=== PATIENT | female | born 1945 | race Caucasian/White ===

== ENCOUNTER 2025-03-14 10:23 | Outpatient (OUT) | payer OTHER, MEDICAID, SELFPAY ==
--- OUTSIDE RECORDS SUMMARY | 2025-03-14 10:26 | XMS_ITS | Clinical Summary ---
Author Organization [employer] tem Address [facility] [id number] [address] [place] [address] Care Team Providers Care Electrical Line Splicer Name Role Phone Kimberly Santillan MD Primary Care Provider [phone] Allergies Active Allergy Reactions Criticality Noted Date Comments Sulfamethoxazole-Trimethoprim 2020 Fatigued, headache Hydralazine Rash Low 10/05/2018 Latex, Natural Rubber Rash Low 08/20/2016 Penicillins Hives 08/20/2016 Pneumococcal 7-More Conj Vacc 019 Sulfa (Sulfonamide Antibiotics) 10/28 Medications aspirin 81 mg Take 1 tablet (81 mg total) by mouth in the morning. Active atorvastatin (LIPITOR) 40 mg tablet Take 2 tablets (80 mg total) by mouth nightly. Active therapeutic multivitamin (THERAGRAN) tablet Take 1 tablet by mouth in the morning. Active omeprazole (PriLOSEC) 20 mg capsule Take 1 capsule (20 mg total) by mouth in the morning. Active DULoxetine (CYMBALTA) 60 mg capsule Take 1 capsule (60 mg total) by mouth in the morning. Active cholecalciferol, vitamin D3, 2,000 units capsule Take 1 capsule (2,000 Units total) by mouth in the morning. Active b complex vitamins capsule Take 1 capsule by mouth in the morning. Active clopidogrel (PLAVIX) 75 mg tablet Take 1 tablet (75 mg total) by mouth in the morning. Active polyethylene glycol (GLYCOLAX) 17 gram packet Take 17 g by mouth in the morning. Active calcium carbonate (OS-DOM) 600 mg (1,500 mg) tablet Take 1 tablet (600 mg total) by mouth daily with breakfast. Active levothyroxine (SYNTHROID, LEVOTHROID) 25 MCG tablet Take 2 tablets (50 mcg total) by mouth in the morning. 10/18/19 Active metoprolol succinate XL (TOPROL-XL) 50 mg 24 hr tablet Take 1 tablet (50 mg total) by mouth daily. 30 tablet 11 04/01/20 20 Active glipiZIDE (GLUCOTROL) 5 mg tablet Take 1 tablet (5 mg total) by mouth in the morning. 05/08/20 Active insulin aspart U-100 (NovoLOG) 100 unit/mL injection Inject under the skin 4 (four) times a day before meals and nightly. SS 150-199=1 UNIT 200-249=2 UNITS 250-299=3 UNITS 300-349=4 UNITS 350-399=5UNITS 400-401=6UNITS, IF BS IS OVER 400 CALL DOCTOR Active pantoprazole (PROTONIX) 20 mg EC tablet Take 2 tablets (40 mg total) by mouth every morning before breakfast. Active docusate sodium (COLACE) 100 mg capsule Take 1 capsule (100 mg total) by mouth in the morning. Active magnesium oxide (MAG-OX) 400 mg tablet Take 1 tablet (400 mg total) by mouth 2 (two) times a day. 60 tablet 2 09/15/19 21 Active Additional Information Patient taking differently:400 mg oralDaily, Morning, Reported on 02/21/2025 semaglutide 14 mg tablet Take 14 mg by mouth in the morning. Active trospium (SANCTURA XR) 60 mg capsule,extended release 24hr Take 1 capsule (60 mg total) by mouth every morning before breakfast. 30 capsule 11 01/30/20 22 Active Additional Information Patient not taking.Reported on 02/21/2025 cetirizine (ZyrTEC) 10 mg tablet Take 1 tablet (10 mg total) by mouth in the morning. Active sennosides-docus ate sodium (SENOKOT-S) 8.6-50 mg Take 2 tablets by mouth daily as needed for constipation. Active acetaminophen (TYLENOL ARTHRITIS) 650 mg 8 hr tablet Take 2 tablets (1,300 mg total) by mouth 2 (two) times a day as needed for pain. Active minocycline (DYNACIN) 50 MG tablet Take 1 tablet (50 mg total) by mouth in the morning and 1 tablet (50 mg total) before bedtime. Active multivit-min/FA/ lycopen/lutein (CERTAVITE SENIOR ORAL) Take by mouth in the morning. Active diclofenac sodium (VOLTAREN) 1 % gel Apply 1 g topically in the morning and at bedtime. Active fluticasone propionate (FLONASE) 50 mcg/actuation nasal spray Administer 1 spray into each nostril daily as needed for rhinitis. Active mirabegron (MYRBETRIQ) 50 mg tablet extended release 24 hr Take 1 tablet (50 mg total) by mouth nightly. Active omega-3 acid ethyl esters (LOVAZA) 1 gram capsule Take 1 capsule (1 g total) by mouth in the morning. Active amLODIPine (NORVASC) 10 mg tablet Take 1 tablet (10 mg total) by mouth in the morning. 30 tablet 2 01/08/20 Active furosemide (LASIX) 40 mg tablet Take 1 tablet (40 mg total) by mouth daily. 30 tablet 2 01/08/20 Active Additional Information Patient taking differently: 20 mgoral Daily, Reported on 02/21/2025 potassium chloride (KLOR-CON M 20) 20 MEQ CR tablet Take 1 tablet (20 mEq total) by mouth in the morning. 30 tablet 2 01/07/20 23 Active albuterol (PROVENTIL HFA;VENTOLIN HFA) 90 mcg/actuation inhaler Inhale 2 puffs every 4 (four) hours as needed. 06/14/19 25 Active albuterol-budeso nide (AIRSUPRA) 90-80 mcg/actuation HFA aerosol inhaler Inhale 2 puffs every 6 (six) hours as needed. 06/27/19 25 Active azelastine (ASTELIN) 137 mcg (0.1 %) nasal spray Administer 2 sprays into each nostril in the morning and 2 sprays before bedtime. 11/25/19 25 Active calcium citrate (CALCITRATE) 200 mg (950 mg) tablet Take 950 mg by mouth in the morning. Active FARXIGA 10 mg tablet Take 1 tablet (10 mg total) by mouth in the morning. 11/29/19 25 Active ipratropium (ATROVENT) 42 mcg (0.06 %) nasal spray Administer 2 sprays into each nostril in the morning and 2 sprays at noon and 2 sprays in the evening and 2 sprays before bedtime. 06/04/19 25 Active lisinopriL (PRINIVIL,ZESTRI L) 2.5 mg tablet Take 1 tablet (2.5 mg total) by mouth in the morning. Active ULTRA-FINE PEN NEEDLE 31 gauge x 3/16 needle USE 1 IN THE MORNING THEN 1 AT NOON THEN 1 IN THE EVENING AND 1 BEFORE BEDTIME INJECT BEFORE MEALS 01/16/20 Active propylene glycoL (SYSTANE BALANCE) 0.6 % drops Instill 1 drop to eye in the morning and 1 drop at noon and 1 drop in the evening and 1 drop before bedtime. Active insulin glargine,hum.rec .anlog (BASAGLAR KWIKPEN U-100 INSULIN) 100 unit/mL (3 mL) insulin pen Inject 10 Units under the skin nightly. Active traMADoL (ULTRAM) 50 mg tablet Take 1 tablet (50 mg total) by mouth every 8 (eight) hours as needed for pain. Discontinu ed(Alterna te therapy) traMADoL (ULTRAM) 50 mg tabletIndication s:Lumbar pain Take 1 tablet (50 mg total) by mouth every 8 (eight) hours as needed for pain for up to 2 days. 6 tablet 02/15/20 025 CEPHalexin (KEFLEX) 500 mg capsule Take 1 capsule (500 mg total) by mouth 3 (three) times a day for 7 days. 21 capsule 02/15/20 25 025 guaiFENesin (MUCINEX) 600 mg tablet extended release 12hr Take 2 tablets (1,200 mg total) by mouth in the morning and 2 tablets (1,200 mg total) before bedtime. 02/28/20 24 025 HYDROcodone-acet aminophen (NORCO) 5-325 mg per tablet Take 1 tablet by mouth every 6 (six) hours as needed. 02/17/20 025 Active Problems Problem Noted Date Diagnosed Date Acute respiratory failure with hypoxia and hyper capnia 01/03/2023 Acute on chronic diastolic congestive heart fail ure 01/03/2023 Hypomagnesemia 09/14/2020 Hypokalemia due to excessive gastrointestinal loss of potassium 09/13/2020 Viral gastroenteritis 09/11/2020 Elevated troponin 04/01/2020 Orthostatic hypotension 04/01/2020 Near syncope 04/01/2020 Abnormal EKG 04/01/2020 Hypothyroidism 09/18/2019 Gastroesophageal reflux disease 04/19/2019 OAB (overactive bladder) 11/14/2018 Overview (03/02/2022): 11/14/18: Overactive bladder with normal exam. Plan urine for culture. Increase Myrbetriq to 50 mg 12/19/18: Markedly improved with myrbetriq 50 mg. Plan to add oxybutynin xr 10 mg daily 01/16/19: Cured with combination of Myrbetriq 50 mg oxybutynin extended release 10 mg. 02/06/20: Was doing well with regimen until recently. Despite the negative culture, she actually feels she is back to baseline with Macrobid. 03/11/20: Recent recurrent overactive bladder. Urine specimen unable to be obtained in clinic. She has been sent home with a collection cup. Will plan to trial Macrobid after urine dropped off. Additionally was suggested that she might benefit from stopping the Ditropan from her neurologist. We can do this but she will likely start to leak more. Also discucssed botox but given the risk of retention she was not interested. Will defer to primary care to change hytrin. 07/23/20: Recent worsening of symptoms. We will clarify with her nursing staff to make sure she is taking both the Myrbetriq and oxybutynin as prescribed. If she has persistent issues, we could consider increasing her oxybutynin to 15 mg. It sounds like neuro was fine with her staying on it as her dizziness resolved after decreasing the dose of her Hytrin. I asked her to call if she suspects a Urinary tract infection as we will check a culture. 01/20/21: Daytime overactive bladder controlled with Myrbetriq 50 mg. Having nocturnal frequency and urge incontinence. Plan to have her tested for sleep apnea. 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 Persistent symptoms including daytime urgency and urge incontinence. Med list shows she is no longer on Myrbetriq. Options reviewed. She is interested in trying Gemtesa 01/06/22: No improvement with Gemtesa. Daytime frequency and nocturia equally problematic at this point. Discussed Botox, sacral nerve stimulation, PFPT or another medication trial. She is interested in a trial of Myrbetriq and Sanctura 03/02/22: Currently using myrbetriq 50 mg. Options of botox, interstim and eCOIN discussed. For now she would like to hold the myrbetriq to see if this is helping at all. If things worsen she would be interested in considering eCOIN Assessment & Plan (01/06/2022 2:55 PM EDT): She had discontinued anticholinergics in the past but it sounds like this was later clear through neurology. We discussed the concerns for memory issues with anticholinergic use. She understands and would like to proceed. We will see her back in 3 months or sooner if any problems Assessment & Plan (12/09/2021 12:37 PM EDT): She understands that sometimes we have issues getting the medication covered by insurance. We did discuss Botox as an option as well Assessment & Plan (02/06/2020 2:38 PM EDT): UA today does show some leukocytes. To be safe, we will repeat culture. I asked her to call if symptoms return as we will repeat UA and C&S before determining further management. If her symptoms return, we could consider pursuing urodynamics testing before discussing further treatment options. If she continues to do well, we will see her back in 1 year. 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 Bilateral carotid artery stenosis 08/08/2017 Blurred vision 06/08/2017 Raynaud's disease 06/02/2017 TIA (transient ischemic attack) 01/24/2017 Spondylosis without myelopat hy or radiculopathy, lumbosacral region 08/20/2016 Sacrococcygeal disorders, not elsewhere classifi ed 08/20/2016 Spondylosis without myelopat hy or radiculopathy, lumbar region 08/20/2016 Small vessel disease 08/20/2016 Other intervertebral disc displacement, lumbar r egion 08/20/2016 Pain in right hip 08/20/2016 Stage 3 chronic kidney disease 01/07/2016 Hyperlipidemia 11/12/2015 Essential hypertension 03/19/2015 Diabetes mellitus, type II 11/27/2009 Overview (01/03/2023): Diabetes mellitus type II Resolved Problems Problem Noted Date Diagnosed Date Resolved Date NSTEMI (non-ST elevated myoc ardial infarction) 03/13/2020 04/01/2020 Encounters Date Type Department Care Team Description 02/21/2025 2:00 PM EDT Office Visit [facility] [address] [place] [phone] Tre Jiang MD Stage 3b chronic kidney disease (CMS-HCC) (Primary Dx) 02/21/2025 Travel 02/19/2025 Results Follow-Up [facility] [address] [place] [phone] Ban Canas RN Urine Culture Urine, Clean Catch Midstream 02/17/2025 8:31 AM EDT - 02/17/2025 5:09 PM EDT Emergency [facility] [address] [place] [phone] Wilfredo Canas MD Hyperkalemia (Primary Dx); Urinary tract infection without hematuria, site unspecified; Acute renal failure superimposed on chronic kidney disease, unspecified acute renal failure type, unspecified CKD stage Discharge Disposition: Home 02/17/2025 Travel 02/15/2025 Telephone [facility] [place] [address] [place] [address] Teresita Yañez CMA 02/14/2025 8:16 AM EDT - 02/14/2025 9:59 AM EDT Emergency [place] [address] [place] [phone] Wilfredo Canas MD Lumbar pain (Primary Dx); Urinary tract infection without hematuria, site unspecified; Hypertension, unspecified type Discharge Disposition: Home 02/14/2025 Travel 01/29/2025 Travel 01/25/2025 Telephone [facility] [address] [place] [address] Pili Montoya CMA Appointment (New Patient ) 01/07/2025 Travel 01/02/2025 Orders Only [facility] [place] [address] [place] [address] Say Harkins MD Stage 3b chronic kidney disease (CMS-HCC) (Primary Dx) 01/01/2025 Telephone [facility] [address] [place] [address] External, Scanning Provider 12/31/2024 Telephone [facility] [address] [place] [phone] External, Scanning Provider from Last 3 Months Immunizations No known immunizations Family History Medical History Relation Name Comments Cancer Father Heart disease Mother Relation Name Status Comments Father Mother Social History Tobacco Use Types Packs/Day Years Used Date Smoking Tobacco: Former Cigarettes 1.5 35 1 960 - 1994 Smokeless Tobacco: Never Tobacco Cessation:Counseling Given: Not Answered Alcohol Use Standard Drinks/Week Comments No 0 (1 standard drink = 0.6 oz pur e alcohol) Housing Instability Answer Date Recorde d Are you worried or concerned that in the next two months you may not have stable housing that you own, rent or stay in as a part of a household? No 01/04/2023 Childcare Answer Date Recorded Childcare Unknown 11/06/2018 Employment Answer Date Recorded Employment Unknown 11/06/2018 Hunger Screening Answer Date Recorded Within the past 12 months we worried whether our food would run out before we got money to buy more. Never True 02/17/2025 Within the past 12 months th e food we bought just didn't last and we didn't have money to get more. Never True 02/17/2025 Purpose - Life Answer Date Recorded Purpose and direction in life Unknown Comments No Sex and Gender Information Value Date Recorded Sex Assigned at Not on file Legal Sex Female 11:23 AM EDT Gender Identity Not on file Sexual Orientation Not on file Last Filed Vital Signs Vital Sign Reading Time Taken Comments Blood Pressure 176/74 02/21/2025 1:45 PM EDT Pulse 80 02/21/2025 1:45 PM EDT Temperature 36.8 C (98.3 F) 02/17/2025 8:32 AM EDT Respiratory Rate 16 02/17/2025 8:32 AM EDT Oxygen Saturation 95% 02/17/2025 4:45 PM EDT Inhaled Oxygen Concentration - - Weight 65.8 kg (145 lb) 02/21/2025 1:45 PM EDT Height 157.5 cm (5' 2 ) 02/21/2025 1:45 PM EDT Body Mass Index 26.52 02/21/2025 1:45 PM EDT Plan of Treatment Upcoming Encounters Date Type Department Care Team (Late st Contact Info) Description 06/13/2025 4:00 PM EST Office Visit [facility] [address] [place] [phone] Tre Jiang MD [address] [place] [address] Health Maintenance Due Date Last Done Comments Depression Screening 1957 DTaP,Tdap and Td Vaccines (1 - Tdap) 08/08/1962 Zoster (Shingles) Vaccine (1 of 2) 08/08/1993 Fall Risk Screening 08/08/2008 COVID-19 Vaccine (5 - 2024-2 6 season) 2025 10/19/2021, 03/16/2021, 07/24/2020, Additional history exists Influenza Vaccine 01/28/2025 03/11/2021, , 02/16/2019, Additional history exists Tobacco Screening 02/21/2026 02/21/2025 Goals Goal Patient Goal Type Associated Problems Recent Progress Patient-Stated? Author Return to Asst Anat General Yes Arina Monahan LSW Note: Evaluation of progress towards goal: Safe dc transition from hospital with return to [place] with PP services. Medical Devices Implanted Type Area Knitter Machine Device Identifier Shelf Expiration Date Model / Serial / Lot Lens Iol Ultrasert 22.0d - [id number] - [id number] Implanted:Qty: 1 on 06/04/2021 by Donna Kwok MD at [facility] Lens Left: Eye [employer] 02/03/2024 AU00T0 22.0 / [id number] / Lens Iol Ultrasert 22.5d - [id number] - [id number] Implanted:Qty: 1 on 07/09/2021 by Donna Kwok MD at [facility] Lens Right: Eye [employer] 10/19/2023 AU00T0 22.5 / [id number] / NA Procedures Procedure Name Priority Date/Time Associated Diagnosis Comments VITAMIN D 25 HYDROXY Routine 02/19/2025 10:16 AM EDT Stage 3b chronic kidney disease ([facility]) URINALYSIS Routine 02/19/2025 10:16 AM EDT Stage 3b chronic kidney disease ([facility]) PROTEIN CREAT RATIO Routine 02/19/2025 1 0:16 AM EDT Stage 3b chronic kidney disease ([facility]) PHOSPHORUS Routine 02/19/2025 10:16 AM EDT Stage 3b chronic kidney disease ([facility]) MAGNESIUM Routine 02/19/2025 10:16 AM EDT Stage 3b chronic kidney disease ([facility]) PARATHYROID HORMOME, INTACT Routine 02/19/2025 10:16 AM EDT Stage 3b chronic kidney disease ([facility]) BASIC METABOLIC PANEL Routine 02/19/2025 10:16 AM EDT Stage 3b chronic kidney disease ([facility]) CBC (NO DIFF) Routine 02/19/2025 10:16 AM EDT Stage 3b chronic kidney disease ([facility]) BASIC METABOLIC PANEL STAT 02/17/2025 3:17 PM EDT POCT NURSING URINE MACROSCOPIC UA Routine 02/17/2025 10:13 AM EDT ER EXTRA URINE MARBLE STAT 02/17/2025 10:11 AM EDT ER EXTRA URINE CULTURE STAT 10:11 AM EDT ER EXTRA URINE STAT 02/17/2025 10:11 AM EDT URINE CULTURE STAT 02/17/2025 10:11 AM EDT COMPREHENSIVE METABOLIC PANEL STAT 02/17/2025 9:23 AM EDT CBC WITH AUTO DIFFERENTIAL STAT 02/17/2025 9:[address] ABDOMEN AND PELVIS WO CONT STAT 02/17/2025 8:59 AM EDT POCT NURSING URINE MACROSCOPIC UA Routine 02/14/2025 9:[address] ABDOMEN AND PELVIS WO CONT STAT 02/14/2025 8:40 AM EDT from Last 3 Months Results * (ABNORMAL) Protein creat ratio (02/19/2025 10:16 AM EDT) URINE PROTEIN, RANDOM (MG/L) 1,150(H) <120 mg/L 02/19/2025 6:50 PM EDT [facility] URINE CREATININE,RDM 43.56 mg/dL 02/19/2025 6:50 PM EDT [facility] U/PRO/CHECKOUT OPERATOR RATIO CALC 2.64(H) <=0.20 02/19/2025 6:50 PM EDT [facility] Urine (Other) Collection / Unknown 02/19/2025 10:16 AM EDT 02/19/2025 10:17 AM EDT [facility] - 02/19/2025 6:50 PM EDT Nephrotic Syndrome is associated with ratios >3.5 us Say Harkins MD URINE ORDERABLES Final Result Performing Organization Address City/[facility]/ZIP Co de Phone Number [facility] [address] [place] [address], [place] [phone] * Parathyroid Hormone, intact (02/19/2025 10:16 AM EDT) PTH INTACT 49 12 - 88 pg/mL 02/19/2025 2:03 PM EDT [facility] Blood Venous blood / Unknown Venipuncture / Unknown 02/19/2025 10:16 AM EDT 02/19/2025 10:17 AM EDT us Say Harkins MD LAB BLOOD ORDERABLES Final Resul t Performing Organization Address City/[facility]/ZIP Co de Phone Number [facility] [address] [place] [address], [place] [phone] * (ABNORMAL) Vitamin D 25 hydroxy (02/19/2025 10:16 AM EDT) VITAMIN D 25 HYD TOT 27.9(L) 30.0 - 100.0 ng/mL 02/19/2025 2:10 PM EDT [facility] Blood Venous blood / Unknown Venipuncture / Unknown 02/19/2025 10:16 AM EDT 02/19/2025 10:17 AM EDT Narrative [facility] - 02/19/2025 2:10 PM EDT Vitamin D status 25 [place] Vitamin D Deficiency <20 ng/mL Insufficiency 20-29 ng/mL Sufficiency 30-100 ng/mL Toxicity >100 ng/mL NOTE: A pediatric reference range has not been established by the reporting developer of this kit. The [employer] recommends a Vitamin D level of = or >20ng/mL in infants and children. us Say Harkins MD LAB BLOOD ORDERABLES Final Resul t [facility] [address] [place] [address], * (ABNORMAL) Urinalysis (02/19/2025 10:16 AM EDT) COLOR Yellow Yellow 02/19/2025 6:18 PM EDT [facility] TURBIDITY Clear Clear 02/19/2025 6:18 PM EDT [facility] SPECIFIC GRAVITY 1.008 1.003 - 1.035 02/19/2025 6:18 PM EDT [facility] NITRITE Negative Negative 02/19/2025 6:18 PM EDT [facility] PH,URINE 5.5 5.0 - 8.5 02/19/2025 6:18 PM EDT [facility] LEUKOCYTE ESTERASE Negative Negative 02/19/2025 6:18 PM EDT [facility] PROTEIN 70 mg/dL(A) Negative 02/19/2025 6:18 PM EDT [facility] KETONES (URINE) Negative Negative 6:18 PM EDT [facility] UROBILINOGEN <1.1 eu/dL <1.1 eu/dL 02/19/2025 6:18 PM EDT [facility] BILIRUBIN (URINE) Negative Negative 02/19/2025 6:18 PM EDT [facility] BLOOD/HGB Negative Negative 02/19/2025 6:18 PM EDT [facility] MUCOUS Present(A) None 02/19/2025 6:18 PM EDT [facility] R.B.CELLS 1 0 - 5 02/19/2025 6:18 PM EDT [facility] SQUAMOUS EPITHELIUM <1 0 - 5 02/19/2025 6:18 PM EDT [facility] W.B.CELLS 2 0 - 5 02/19/2025 6:18 PM EDT [facility] GLUCOSE (URINE) 1000 mg/dL(A) Negative 02/19/2025 6:18 PM EDT [facility] Urine (Other) Collection / Unknown 02/19/2025 10:16 AM EDT 02/19/2025 10:17 AM EDT Narrative [facility] - 02/19/2025 6:18 PM EDT Urine received without preservative. Delays in transport may affect results. Interpret with caution. A clinical correlation is recommended. us Say Harkins MD URINE ORDERABLES Final Result [facility] [address] [place] [address], [place] [phone] * (ABNORMAL) CBC without diff (02/19/2025 10:16 AM EDT) WBC 7.9 4 - 11 x10E9/L 02/19/2025 2:53 PM EDT [facility] RBC Count 3.76(L) 3.8 - 5.2 X10E12/L 02/19/2025 2:53 PM EDT [facility] Hemoglobin 12.2 11.7 - 15.5 g/dL 02/19/2025 2:53 PM EDT [facility] Hematocrit 36.2 35 - 47 % 02/19/2025 2:53 PM EDT [facility] MCV 96 80 - 100 fL 02/19/2025 2:53 PM EDT [facility] MCH 32.4 27 - 34 pg 02/19/2025 2:53 PM EDT [facility] MCHC 33.7 32 - 36 g/dL 02/19/2025 2:53 PM EDT [facility] RDW 14.4 11.5 - 15 % 02/19/2025 2:53 PM EDT [facility] Platelet Count 227 150 - 450 X10E9/L 02/19/2025 2:53 PM EDT [facility] MPV 10.0 7 - 12 fL 02/19/2025 2:53 PM EDT [facility] Blood Venous blood / Unknown Venipuncture / Unknown 02/19/2025 10:16 AM EDT 02/19/2025 10:17 AM EDT us Say Harkins MD LAB BLOOD ORDERABLES Final Resul t [facility] [address] [place] [address], [place] [phone] * Phosphorus (02/19/2025 10:16 AM EDT) PHOSPHORUS 4.0 2.4 - 4.9 mg/dL 02/19/2025 1:47 PM EDT [facility] Blood Venous blood / Unknown Venipuncture / Unknown 02/19/2025 10:16 AM EDT 02/19/2025 10:17 AM EDT us Say Harkins MD LAB BLOOD ORDERABLES Final Resul t Performing Organization Address City/[facility]/ZIP Co de Phone Number [facility] [address] [place] [address], [place] [phone] * Magnesium (02/19/2025 10:16 AM EDT) MAGNESIUM 2.4 1.8 - 2.6 mg/dL 02/19/2025 1:47 PM EDT [facility] Blood Venous blood / Unknown Venipuncture / Unknown 02/19/2025 10:16 AM EDT 02/19/2025 10:17 AM EDT us Say Harkins MD LAB BLOOD ORDERABLES Final Resul t [facility] [address] [place] [address], [place] [phone] * (ABNORMAL) Basic Metabolic Panel (02/19/2025 10:16 AM EDT) Only the most recent of2 resultswithin the time period is included. SODIUM 135 134 - 146 mmol/L 02/19/2025 1:47 PM EDT [facility] POTASSIUM 4.6 3.5 - 5.0 mmol/L 02/19/2025 1:47 PM EDT [facility] CHLORIDE 102 98 - 109 mmol/L 02/19/2025 1:47 PM EDT [facility] CARBON DIOXIDE 27 22 - 32 mmol/L 02/19/2025 1:47 PM EDT [facility] ANION GAP 6 5 - 15 mmol/L 02/19/2025 1:47 PM EDT [facility] BLOOD UREA NITROGEN 46(H) 5 - 27 mg/dL 02/19/2025 1:47 PM EDT [facility] CREATININE 2.24(H) 0.40 - 1.00 mg/dL 02/19/2025 1:47 PM EDT [facility] Comment:METHOD TRACEABLE TO IDMS STANDARD GLUCOSE 124(H) 65 - 99 mg/dL 02/19/2025 1:47 PM EDT [facility] CALCIUM 9.3 8.5 - 10.5 mg/dL 02/19/2025 1:47 PM EDT [facility] EGFR Non-Race Dependent 22(L) >=60 ml/min/1.7 3sq.m 02/19/2025 1:47 PM EDT [facility] Comment: Reported eGFR is based on the CKD-EPI 2020 equation that does not use a race coefficient. Blood Venous blood / Unknown Venipuncture / Unknown 02/19/2025 10:16 AM EDT 02/19/2025 10:17 AM EDT us Say Harkins MD LAB BLOOD ORDERABLES Final Resul t [facility] [address] [place] [address], [place] [phone] * (ABNORMAL) POCT Nursing Urine Macroscopic UA (02/17/2025 10:13 AM EDT) Only the most recent of2 resultswithin the time period is included. POC Urine Specific [place] 1.020 1.010, 1.015, 1.020, 1.025 02/17/2025 10:16 AM EDT [facility] POC Urine Leukocyte Esterase Negative Negative 02/17/2025 10:16 AM EDT [facility] POC Urine Nitrite Negative Negative 02/17/2025 10:16 AM EDT [facility] POC Urine pH 6.0 5.0, 6.0, 6.5, 7.0, 7.5, 8.0, 8.5, 5.5 02/17/2025 10:16 AM EDT [facility] POC Urine Protein >=300 mg/dL(A) Negative 02/17/2025 10:16 AM EDT [facility] POC Urine Glucose 500 mg/dL(A) Negative 02/17/2025 10:16 AM EDT [facility] POC Urine Ketones Negative Negative 02/17/2025 10:16 AM EDT [facility] POC Urine Urobilinogen 0.2 E.U./dL 02/17/2025 10:16 AM EDT [facility] POC Urine Bilirubin Negative Negative 02/17/2025 10:16 AM EDT [facility] POC Urine Blood/HGB Negative Negative 02/17/2025 10:16 AM EDT [facility] Urine 02/17/2025 10:1 3 AM EDT 02/17/2025 10:16 AM EDT us Wilfredo Canas MD POINT OF CARE TEST ORDERABLES F inal Result [facility] [address] [place] [address], [place] * Extra Urine [place] (02/17/2025 10:11 AM EDT) Extra Tube Auto Resulted 02/17/2025 12:02 PM EDT [facility] Urine Urine specimen collection, clean catch / Unknown 02/17/2025 10:11 AM EDT 02/17/2025 10:53 AM EDT us Wilfredo Canas MD URINE ORDERABLES Final Result Performing Organization Address City/[facility] Co de Phone Number [address] [place] [address], [place] * Extra Urine Culture (02/17/2025 10:11 AM EDT) Extra Tube Auto Resulted 02/17/2025 12:02 PM EDT [facility] Urine Urine specimen collection, clean catch / Unknown 02/17/2025 10:11 AM EDT 02/17/2025 10:53 AM EDT us Wilfredo Canas MD URINE ORDERABLES Final Result Performing Organization Address [facility] Co de Phone Number [address] [place] [address], [place] * Extra Urine (02/17/2025 10:11 AM EDT) Extra Tube Auto Resulted 02/17/2025 12:02 PM EDT [facility] Urine Urine specimen collection, clean catch / Unknown 02/17/2025 10:11 AM EDT 02/17/2025 10:53 AM EDT us Wilfredo Canas MD URINE ORDERABLES Final Result Performing Organization Address City/[facility] Co de Phone Number [address] [place] [address], [place] * Urine Culture Urine, Clean Catch [place] (02/17/2025 10:11 AM EDT) CULTURE RESULTS NO GROWTH AT <1000 CFU/mL 02/18/2025 3:44 PM EDT [facility] Urine Urine specimen collection, clean catch / Unknown 02/17/2025 10:11 AM EDT 02/17/2025 10:53 AM EDT us Wilfredo Canas MD MICROBIOLOGY - GENERAL ORDERABL ES Final Result [facility] [address] [place] [address], * (ABNORMAL) CBC auto differential (02/17/2025 9:23 AM EDT) WBC 9.0 4 - 11 x10E9/L 02/17/2025 9:46 AM EDT [facility] RBC Count 3.69(L) 3.8 - 5.2 X10E12/L 02/17/2025 9:46 AM EDT [facility] Hemoglobin 11.8 11.7 - 15.5 g/dL 02/17/2025 9:46 AM EDT [facility] Hematocrit 35.6 35 - 47 % 02/17/2025 9:46 AM EDT [facility] MCV 97 80 - 100 fL 02/17/2025 9:46 AM EDT [facility] MCH 32.1 27 - 34 pg 02/17/2025 9:46 AM EDT [facility] MCHC 33.3 32 - 36 g/dL 02/17/2025 9:46 AM EDT [facility] RDW 14.1 11.5 - 15 % 02/17/2025 9:46 AM EDT [facility] Platelet Count 209 150 - 450 X10E9/L 02/17/2025 9:46 AM EDT [facility] MPV 9.7 7 - 12 fL 02/17/2025 9:46 AM EDT [facility] Neutrophils % 78.3 % 02/17/2025 9:46 AM EDT [facility] Lymphocytes % 8.2 % 02/17/2025 9:46 AM EDT [facility] Monocytes % 12.3 % 02/17/2025 9:46 AM EDT [facility] Eosinophils % 1.0 % 02/17/2025 9:46 AM EDT [facility] Basophils % 0.2 % 02/17/2025 9:46 AM EDT [facility] Neutrophils Absolute (A) 7.0(H) 1.5 - 6.6 10*3/uL 02/17/2025 9:46 AM EDT [facility] Lymphocytes Absolute 0.7(L) 1.0 - 3.5 10*3/uL 02/17/2025 9:46 AM EDT [facility] Monocytes Absolute 1.1(H) 0.0 - 0.9 10*3/uL 02/17/2025 9:46 AM EDT [facility] Eosinophils Absolute 0.1 0.0 - 0.4 10*3/uL 02/17/2025 9:46 AM EDT [facility] Basophils Absolute 0.0 0.0 - 0.2 10*3/uL 02/17/2025 9:46 AM EDT [facility] Differential Type AUTOMATED DIFFERENTIAL 02/17/2025 9:46 AM EDT [facility] Blood Venous blood / Unknown Venipuncture / Unknown 02/17/2025 9:23 AM EDT 02/17/2025 9:38 AM EDT us Wilfredo Canas MD LAB BLOOD ORDERABLES Final Resu lt [facility] [address] [place] [address], * (ABNORMAL) Comprehensive metabolic panel (02/17/2025 9:23 AM EDT) SODIUM 133(L) 134 - 146 mmol/L 02/17/2025 9:56 AM EDT [facility] POTASSIUM 5.2(H) 3.5 - 5.0 mmol/L 02/17/2025 9:56 AM EDT [facility] CHLORIDE 99 98 - 109 mmol/L 02/17/2025 9:56 AM EDT [facility] CARBON DIOXIDE 20(L) 22 - 32 mmol/L 02/17/2025 9:56 AM EDT [facility] ANION GAP 14 5 - 15 mmol/L 02/17/2025 9:56 AM EDT [facility] BLOOD UREA NITROGEN 55(H) 5 - 27 mg/dL 02/17/2025 9:56 AM EDT [facility] CREATININE 2.26(H) 0.40 - 1.00 mg/dL 02/17/2025 9:56 AM EDT [facility] Comment:METHOD TRACEABLE TO IDMS STANDARD GLUCOSE 169(H) 65 - 99 mg/dL 02/17/2025 9:56 AM EDT [facility] CALCIUM 9.0 8.5 - 10.5 mg/dL 02/17/2025 9:56 AM EDT [facility] TOTAL PROTEIN 7.0 6.0 - 8.0 g/dL 02/17/2025 9:56 AM EDT [facility] ALBUMIN 3.5 3.2 - 5.3 g/dL 02/17/2025 9:56 AM EDT [facility] ALKALINE PHOSPHATASE 220(H) 39 - 130 U/L 02/17/2025 9:56 AM EDT [facility] AST 57(H) <=41 U/L 02/17/2025 9:56 AM EDT [facility] ALT 68(H) <=31 U/L 02/17/2025 9:56 AM EDT [facility] BILIRUBIN,TOTAL 0.8 0.3 - 1.2 mg/dL 02/17/2025 9:56 AM EDT [facility] EGFR Non-Race Dependent 21(L) >=60 ml/min/1.7 3sq.m 02/17/2025 9:56 AM EDT [facility] Comment: eGFR not reported due to non-numeric value for Creatinine. Reported eGFR is based on the CKD-EPI 2020 equation that does not use a race coefficient. Blood Venous blood / Unknown Venipuncture / Unknown 02/17/2025 9:23 AM EDT 02/17/2025 9:38 AM EDT us Wilfredo Canas MD LAB BLOOD ORDERABLES Final Resu lt [facility] [address] [place] [address], [place] * CT abdomen and pelvis without contrast (02/17/2025 8:59 AM EDT) Only the most recent of2 resultswithin the time period is included. Anatomical Region Laterality Modality Body, Abdomen, Body Covera N/A Compu guido Tomography 02/17/2025 9:02 AM EDT Narrative 02/17/2025 9:04 AM EDT STUDY: Abdomen and pelvis CT without intravenous contrast 02/17/2025. CLINICAL HISTORY: Abdominal pain radiating to back. Questionable pyelonephritis COMPARISON: 02/14/2025 TECHNIQUE: Abdomen and pelvis CT was performed without intravenous contrast utilizing 5 mm axial reconstructions with coronal and sagittal reformatted images. Automated exposure control was utilized. FINDINGS: ABDOMEN: Assessment of the abdominal pelvic viscera is compromised by absence of IV contrast markedly for the assessment of pyelonephritis. No pleural or pericardial effusion and lung bases. No lower lung consolidation. Heavy coronary calcifications. Positional changes of thoracolumbar spinal curvature. Gallbladder is absent. Noncontrast assessment of the liver adrenal glands pancreas. Unremarkable. Multiple calcified splenic granulomas. Stable atrophic left kidney compared to the right. Bilateral renal cysts are stable requiring no additional follow-up imaging. Hyperdense proteinaceous cyst superior right renal pole measuring 8 mm, stable, requiring no additional follow-up imaging. No renal collecting system dilatation. Small bowel not dilated. Mild to moderate amount of stool throughout the colon. Appendix unremarkable. PELVIS: No free pelvic fluid. Uterus is present. No enlarged pelvic lymph nodes. Degenerative changes of the thoracolumbar spine. IMPRESSION: 1. No definitive acute abdominal or pelvic process identified within the limitations of the noncontrast examination. All CT scans at this facility use dose modulation, iterative reconstruction, and/or weight based dosing when appropriate to reduce radiation dose to as low as reasonably achievable. Finalized by Amilcar Pacheco MD on 02/17/2025 9:04 AM Procedure Note Amilcar Pacheco MD - 02/17/2025 STUDY: Abdomen and pelvis CT without intravenous contrast 02/17/2025. CLINICAL HISTORY: Abdominal pain radiating to back. Questionablepyelonephritis COMPARISON: 02/14/2025 TECHNIQUE: Abdomen and pelvis CT was performed without intravenouscontrast utilizing 5 mm axial reconstructions with coronal and sagittalreformatted images. Automated exposure control was utilized. FINDINGS: ABDOMEN: Assessment of the abdominal pelvic viscera is compromised by absence of IVcontrast markedly for the assessment of pyelonephritis. No pleural or pericardial effusion and lung bases. No lower lung consolidation. Heavy coronary calcifications. Positional changes of thoracolumbar spinal curvature. Gallbladder is absent. Noncontrast assessment of the liver adrenal glands pancreas. Unremarkable.Multiple calcified splenic granulomas. Stable atrophic left kidney compared to the right. Bilateral renal cystsare stable requiring no additional follow-up imaging. Hyperdense proteinaceous cyst superior right renal pole measuring 8 mm,stable, requiring no additional follow-up imaging. No renal collecting system dilatation. Small bowel not dilated. Mild to moderate amount of stool throughout thecolon. Appendix unremarkable. PELVIS: No free pelvic fluid. Uterus is present. No enlarged pelvic lymph nodes. Degenerative changes of the thoracolumbar spine. IMPRESSION: 1. No definitive acute abdominal or pelvic process identified within thelimitations of the noncontrast examination. All CT scans at this facility use dose modulation, iterativereconstruction, and/or weight based dosing when appropriate to reduceradiation dose to as low as reasonably achievable. Finalized by Amilcar Pacheco MD on 02/17/2025 9:04 AM Wilfredo Canas MD IMG CT ORDERABLES Final Result from Last 3 Months Insurance [place] Advance Directives Documents on File Type Date Recorded Patient Border Machine Operator Expl anation Advance Directive 02/14/2025 8:20 AM DNRCC Advance Directive 05/16/2023 6:43 AM DNR DNR Physician Order 01/26/2023 2:22 PM Durable Power of Garment Sewing Machine Operator 09/19/2020 1:20 PM Living Will 09/19/2020 1:20 PM DNR Physician Order 09/19/2020 1:15 PM Advance Directive 04/01/2020 11:45 PM Adva nced Directive 04-01-20 Living Will 03/20/2019 1:10 PM Durable Power of Garment Sewing Machine Operator 03/20/2019 1:05 PM Living Will 11/14/2018 2:17 PM Living [place] l * DNR Comfort Care Arrest (DNR-CCA) [place] (Latest Code Status on File) Date Activated Date Inactivated Comments 01/03/2023 12:08 PM 01/06/2023 9:01 PM * DNR Comfort Care (DNRCC) [place] Date Activated Date Inactivated Comments 09/12/2020 7:48 AM 09/14/2020 4:21 PM * Full Code Date Activated Date Inactivated Comments 09/12/2020 7:45 AM 09/12/2020 7:45 AM * DNR Comfort Care Arrest (DNR-CCA) [place] Date Activated Date Inactivated Comments 03/13/2020 5:22 PM 03/14/2020 9:20 PM * Full Code Date Activated Date Inactivated Comments 03/13/2020 1:25 PM 03/13/2020 5:22 PM Care Teams Electrical Line Splicer Relationship Specialty Start Date End Date Kimberly Santillan MD [address] [place] [address] PCP - General Family Medicine 10/04/18
--- OUTSIDE RECORDS SUMMARY | 2025-03-14 10:28 | XMS_ITS | Encounter Summary ---
Author Organization [employer] Address [id number] [address] [place] [address] Care Team Providers Care Scout Sniper Name Role Phone Kimberly Santillan MD Primary Care Provider [phone] Encounter Details Date Type Department Care Team ([facility] st Contact Info) Description 03/09/2022 Telephone [facility] [address] [place] [address] [place] [address] [place] [address] Ute Rios CMA Social History Tobacco Use Types Packs/Day Years Used Date Smoking Tobacco: Former Cigarettes 1.5 35 1 960 - 1995 Smokeless Tobacco: Never Alcohol Use Standard Drinks/Week Comments No 0 (1 standard drink = 0.6 oz pur e alcohol) Childcare Answer Date Recorded Childcare Unknown 11/06/2018 Employment Answer Date Recorded Employment Unknown 11/06/2018 Purpose - Life Answer Date Recorded Purpose and direction in life Unknown Comments No Sex and Gender Information Value Date Recorded Sex Assigned at Not on file Legal Sex Female 11:23 AM EDT Gender Identity Not on file Sexual Orientation Not on file COVID-19 Exposure Response Date Recorded In the last month, have you been in contact with someone who was confirmed or suspected to have Coronavirus / COVID-19? No / Unsure 03/02/2022 2:12 PM EDT documented as of this encounter Miscellaneous Notes * Telephone Encounter - Ute Rios CMA - 03/09/2022 11:30 AM EDT Received a fax from pt's facility asking if she can restart the Myrbetriq due to increased incontinence. OK to restart? * Telephone Encounter - Gaudencio Castanon MD - 03/09/2022 11:30 AM EDT Yes, I sent a note with her saying it was ok to do so documented in this encounter Plan of Treatment Upcoming Encounters Date Type Department Care Team (Late st Contact Info) Description 06/13/2025 4:00 PM EST Office Visit [facility] [address] [place] [id number] Tre Jiang MD [address] [place] [address] documented as of this encounter Goals Goal Patient Goal Type Associated Problems Recent Progress Patient-Stated? Author Return to Asst Anat General Yes Arina Monahan LSW Note: Evaluation of progress towards goal: Safe dc transition from hospital with return to [place] with PP services. documented as of this encounter Visit Diagnoses Not on filedocumented in this encounter Additional Health Concerns Infection Onset Date Last Indicated Resolved Time COVID-19 Rule-Out 01/03/2023 01/03/2023 01/03/2023 1:53 AM EDT COVID-19 Rule-Out 05/16/2023 05/16/2023 05/16/2023 8:52 AM EST documented as of this encounter Care Teams Scout Sniper Relationship Specialty Start Date End Date Kimberly Santillan MD [address] [place] [address] PCP - General Family Medicine 10/04/18 documented as of this encounter
--- OUTSIDE RECORDS SUMMARY | 2025-03-14 10:28 | XMS_ITS | Encounter Summary ---
Author Organization [facility] Address [address] [place] [address] Care Team Providers Care Energy Derivatives Trader Name Role Phone Kimberly Santillan MD Primary Care Provider [phone] Encounter Details Date Type Department Care Team (Late st Contact Info) Description 03/13/2025 Telephone [facility] [place] [facility] [address] [place] [address] Kimberly Santillan MD [address] [place], [place] [id number] Social History Tobacco Use Types Packs/Day Years Used Date Smoking Tobacco: Former Cigarettes Q uit: 1994 Smokeless Tobacco: Former Alcohol Use Standard Drinks/Week Comments Not Currently 0 (1 standard drink = 0.6 oz pure alcohol) caffeine intake: 2 cups of coffee daily AUDIT-C Answer Date Recorded Q1: How often do you have a drink containing alcohol? Never 11/03/2022 Q2: How many drinks containi ng alcohol do you have on a typical day when you are drinking? Patient does not drink Q3: How often do you have si x or more drinks on one occasion? Never 11/03/2022 PHQ-2 Answer Date Recorded Patient Health Questionnaire-2 Score 0 11/29/2024 Comments Unknown Sex and Gender Information Value Date Recorded Sex Assigned at Not on file Legal Sex Female 7:17 PM EDT Gender Identity Female 08/11/2022 7:17 PM EDT Sexual Orientation Not on file documented as of this encounter Miscellaneous Notes * Telephone Encounter - Theresa Dawn RN - 03/14/2025 9:46 AM EDT See new encounter * Telephone Encounter - Theresa Dawn RN - 03/14/2025 9:23 AM EDT Pt supply of sensors comes from [facility]. Will call to see if she has refills left. * Telephone Encounter - Chelle Medel - 03/13/2025 12:33 PM EDT Hi, I am a nurse over at [facility]. I am calling on behalf of Mary singh. Her primary physician is Dr Kimberly Wang. I was just wondering if we could get a script sent to [facility] pharmacy here in [place] for a freestyle Stephanie sensor. I believe she had a free style to. So if yeah, if you guys could just get that script over there to [facility] pharmacy. Thanks so much. Thank. documented in this encounter Plan of Treatment Not on file documented as of this encounter Visit Diagnoses Not on filedocumented in this encounter Additional Health Concerns Assessment Noted Time PHQ-9 Depression Total Score: 0 05/11/20 23 2:00 PM EST documented as of this encounter Care Teams Energy Derivatives Trader Relationship Specialty Start Date End Date Kimberly Santillan MD [address] [place] [address] PCP - General Family Medicine 10/18/22 documented as of this encounter
--- OUTSIDE RECORDS SUMMARY | 2025-03-14 10:28 | XMS_ITS | Encounter Summary ---
Author Organization [facility] Address [address] [place] [address] Care Team Providers Care Wafer Fab Operator Name Role Phone Kimberly Santillan MD Primary Care Provider [phone] Reason for Visit * Reason Comments Med Refill Encounter Details Date Type Department Care Team (Late st Contact Info) Description 01/17/2023 Refill [facility] [address] [place] [address] Kimberly Santillan MD [address] [place], [place] [id number] Primary hypertension (Primary Dx); Type 2 diabetes mellitus with other specified complication, without long-term current use of insulin (HCC); Acquired hypothyroidism Social History Tobacco Use Types Packs/Day Years Used Date Smoking Tobacco: Former Cigarettes Q uit: 1994 Alcohol Use Standard Drinks/Week Comments Not Currently 0 (1 standard drink = 0.6 oz pur e alcohol) AUDIT-C Answer Date Recorded Q1: How often do you have a drink containing alcohol? Never 11/03/2022 Q2: How many drinks containi ng alcohol do you have on a typical day when you are drinking? Patient does not drink Q3: How often do you have si x or more drinks on one occasion? Never 11/03/2022 PHQ-2 Answer Date Recorded Patient Health Questionnaire-2 Score 0 11/03/2022 Comments Unknown Sex and Gender Information Value Date Recorded Sex Assigned at Not on file Legal Sex Female 7:17 PM EDT Gender Identity Female 08/11/2022 7:17 PM EDT Sexual Orientation Not on file documented as of this encounter Miscellaneous Notes * Telephone Encounter - Kimberly Santillan MD - 01/19/2023 3:50 PM EDT Approving, but needs appt for additional refills. * Telephone Encounter - Kimberly Santillan MD - 01/19/2023 3:44 PM EDT Approving, but needs appt for additional refills. documented in this encounter Plan of Treatment Not on file documented as of this encounter Visit Diagnoses Diagnosis Primary hypertension- Primary Unspecified essential hypertension Type 2 diabetes mellitus with other specified complication, without long-term current use of insulin (HCC) Acquired hypothyroidism Unspecified hypothyroidism documented in this encounter Care Teams Wafer Fab Operator Relationship Specialty Start Date End Date Kimberly Santillan MD [address] [place] [address] PCP - General Family Medicine 10/18/22 documented as of this encounter
--- OUTSIDE RECORDS SUMMARY | 2025-03-14 10:28 | XMS_ITS | Encounter Summary ---
Author Organization [facility] Address [address] [place] [address] Care Team Providers Care Administrative Support Assistant Name Role Phone Kimberly Santillan MD Primary Care Provider [phone] Kimberly Santillan MD Unavailable [phone] Encounter Details Date Type Department Care Team (Late st Contact Info) Description 12/29/2022 [facility] [address] [place] [phone] Kimberly Santillan MD [address] [place], [place] [id number] Social History Tobacco Use Types Packs/Day Years [...] on file documented as of this encounter Plan of Treatment Not on file documented as of this encounter Visit Diagnoses Not on filedocumented in this encounter Care Teams Administrative Support Assistant Relationship Specialty Start Date End Date Kimberly Santillan MD [address] [place] [address] PCP - General Family Medicine 10/18/22 Kimberly Santillan MD [address] [place] [address] PCP - ACO Reach 10/21/22 01/05/23 documented as of this encounter
--- OUTSIDE RECORDS SUMMARY | 2025-03-14 10:28 | XMS_ITS | Encounter Summary ---
Author Organization [facility] Address [address] [place] [address] Care Team Providers Care Arc Welder Apprentice Name Role Phone Kimberly Santillan MD Primary Care Provider [phone] Encounter Details Date Type Department Care Team (Late st Contact Info) Description 02/01/2023 Orders Only [facility] Family Medicine [address] [place] [address] Bertha Ayala NP [address] [place], [place] [id number] Acquired hypothyroidism (Primary Dx); Type 2 diabetes mellitus with stage 3b chronic kidney disease, with long-term current use of insulin (HCC); Chronic diastolic heart failure (HCC) Social History Tobacco Use Types Packs/Day Years [...] on file documented as of this encounter Procedures Procedure Name Priority Date/Time Associated Diagnosis Comments TSH W/REFLEX TO FT4 Routine 03/18/2023 3:38 PM EDT Acquired hypothyroidism documented in this encounter Results * TSH W/REFLEX TO FT4 (03/18/2023 3:38 PM EDT) TSH W/REFLEX TO FT4 4.36 0.40 - 4.50 mIU/L [facility] 03/18/2023 3:38 PM EDT 03/18/2023 3:38 PM EDT Narrative Resulting Agency Comment Performing Organization Information Site ID: [id number] Name: [facility] Address: [address] [place] [address], [address] [place] [id number] Director: Hola Murray MD Bertha Ayala [facility] BLOOD ORDERABLES Final Resu lt [facility] documented in this encounter Visit Diagnoses Diagnosis Acquired hypothyroidism- Primary Unspecified hypothyroidism Type 2 diabetes mellitus with stage 3b chronic kidney disease, with long-term current use of insulin (HCC) Chronic diastolic heart failure (HCC) Chronic diastolic heart failure documented in this encounter Care Teams Arc Welder Apprentice Relationship Specialty Start Date End Date Kimberly Santillan MD [address] [place] [address] PCP - General Family Medicine 10/18/22 documented as of this encounter
--- OUTSIDE RECORDS SUMMARY | 2025-03-14 10:28 | XMS_ITS | Clinical Summary ---
Author Organization [facility] Address [address] [place] [address] Care Team Providers Care Ticket Taker Ferryboat Name Role Phone Mina Monroe MD Primary Care Provider [phone] Source Comments The following information is NOT included in Care Everywhere downloads:Psychiatric notes, ECG results, Cardiac Rehab notes, Pulmonary Function notes, data from [facility] (includes but not limited toPregnancy data,audiograms, eye exams, pre-surgical evaluation notes, well-child exam data).[facility] Allergies Active Allergy Reactions Criticality Noted Date Comments Penicillins Hives,Swelling 11/27/2009 Active Problems Problem Noted Date Diagnosed Date Major depression, recurrent 11/27/2009 Unspecified essential hypertension 11/27/2009 Diabetes mellitus, type II 11/27/2009 Overview (09/06/2018): Diabetes mellitus type II Sleep apnea 11/27/2009 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 Restrictive lung disease 11/27/2009 Pain in joint, pelvic region and thigh 0 Social History Tobacco Use Types Packs/Day Years Used Date Smoking Tobacco: Former Cigarettes Comments:quit 12-15 years ag o Alcohol Use Standard Drinks/Week Comments Not Asked 0 (1 standard drink = 0.6 oz pur e alcohol) Substance Use Types Use/Week Comments Not Asked Comments No Sex and Gender Information Value Date Recorded Sex Assigned at Not on file Legal Sex Female 12:59 PM EST Gender Identity Not on file Sexual Orientation Not on file Last Filed Vital Signs Vital Sign Reading Time Taken Comments Blood Pressure 134/81 11/27/2009 12:13 PM EDT Pulse 80 11/27/2009 12:13 PM EDT Temperature - - Respiratory Rate - - Oxygen Saturation - - Inhaled Oxygen Concentration - - Weight - - Height - - Body Mass Index - - Plan of Treatment Health Maintenance Due Date Last Done Comments Tdap Booster 08/08/1961 Hepatitis A (HAV) Vaccine (optional start 19+ years) 0 08/08/1962 Tetanus (Td or Tdap) Booster 08/08/1962 Pneumococcal Vaccine(s) (50+ yrs) (1 of 1 - PCV) 08/08 Shingles (RZV) Vaccine (1 of 2) 08/08/1993 Hepatitis B (HBV) Vaccine (optional start 60+ years) 0 2003 Bone Densitometry 08/08/2008 Annual Wellness Visit (G0438) 05/30/2009 RSV vaccine (adult) (1 - 1-dose 75+ series) 08/08/2018 COVID-19 Vaccine ( - season) 2025 Influenza Vaccine (#1) 2025 Pap Smear Discontinued Insurance MEDICARE Care Teams Ticket Taker Ferryboat Relationship Specialty Start Date End Date Mina Monroe MD [address] [place] [address] PCP - General 07/25/09
--- OUTSIDE RECORDS SUMMARY | 2025-03-14 10:28 | XMS_ITS | Encounter Summary ---
Author Organization [facility] Address [address] [place] [address] Care Team Providers Care Front Of House Manager Name Role Phone Kimberly Santillan MD Primary Care Provider [phone] Encounter Details Date Type Department Care Team (Late st Contact Info) Description 10/10/[address] [facility] Family Medicine [address] [place] [address] Kimberly Santillan MD [address] [place], [place] [phone] Social History Tobacco Use Types Packs/Day Years [...] Date Recorded Patient Health Questionnaire-2 Score 0 04/17/2024 Comments Unknown Sex and Gender Information Value Date Recorded Sex Assigned at Not on file Legal Sex Female 7:17 PM EDT Gender Identity Female 08/11/2022 7:17 PM EDT Sexual Orientation Not on file documented as of this encounter Plan of Treatment Not on file documented as of this encounter Procedures Procedure Name Priority Date/Time Associated Diagnosis Comments DIABETIC RETINOPATHY SCREENING - OU - BOTH EYES Routine 10/09/2024 10:26 AM EDT documented in this encounter Results * Diabetic Retinopathy Screening - OU - Both Eyes (10/09/2024 10:26 AM EDT) Anatomical Region Laterality Modality Head Other us Kimberly Santillan MD OPHTH PHOTOGRAPHY Final Resul t documented in this encounter Visit Diagnoses Not on filedocumented in this encounter Additional Health Concerns Assessment Noted Time PHQ-9 Depression Total Score: 0 05/11/20 23 2:00 PM EST documented as of this encounter Care Teams Front Of House Manager Relationship Specialty Start Date End Date Kimberly Santillan MD [address] [place] [address] PCP - General Family Medicine 10/18/22 documented as of this encounter
--- OUTSIDE RECORDS SUMMARY | 2025-03-14 10:28 | XMS_ITS | Encounter Summary ---
Author Organization [id number] [address] [place] [address] Care Team Providers Care Car Parker Name Role Phone Kimberly Santillan MD Primary Care Provider [phone] Encounter Details Date Type Department Care Team ([facility] Contact Info) Description 01/27/2017 Documentation [facility] Neurology [address] [facility] [address] [place] [address] Celestino Byers C, DO [address] [facility] [address] [place] [address] Social History Tobacco Use Types Packs/Day Years Used Date Smoking Tobacco: Former Smokeless Tobacco: Never Alcohol Use Standard Drinks/Week Comments No 0 (1 standard drink = 0.6 oz pur e alcohol) Comments No Sex and Gender Information Value Date Recorded Sex Assigned at Not on file Legal Sex Female 11:23 AM EDT Gender Identity Not on file Sexual Orientation Not on file documented as of this encounter Plan of Treatment Upcoming Encounters Date Type Department Care Team (Late Contact Info) Description 06/13/2025 4:00 PM EST Office Visit [facility] [address] [place] [address] Tre Jiang MD [address] [place], [place] [phone] documented as of this encounter Visit Diagnoses Not on filedocumented in this encounter Additional Health Concerns Infection Onset Date Last Indicated Resolved Time COVID-19 Rule-Out 01/03/2023 01/03/202301/03/2023 1:53 AM EDT COVID-19 Rule-Out 05/16/2023 05/16/2023 05/16/2023 8:52 AM EST documented as of this encounter Care Teams Car Parker Relationship Specialty Start Date End Date Kimberly Santillan MD [address] [place] [address] PCP - General Family Medicine 10/04/18 documented as of this encounter
--- OUTSIDE RECORDS SUMMARY | 2025-03-14 10:28 | XMS_ITS | Encounter Summary ---
Author Organization [facility] Address [address] [place] [address] Care Team Providers Care Rfid Strategist Name Role Phone Kimberly Santillan MD Primary Care Provider [phone] Encounter Details Date Type Department Care Team (Latest Contact Info) Description 03/01/2025 Results Follow-Up [facility] Family Medicine [address] [place] [address] Kimberly Santillan MD [address] [place], [place] [phone] Comprehensive metabolic panel, Amylase, Lipase, Hemoglobin A1c Social History Tobacco Use Types Packs/Day Years [...] documented as of this encounter Care Teams Rfid Strategist Relationship Specialty Start Date End Date Kimberly Santillan MD [address] [place] [address] PCP - General Family Medicine 10/18/22 documented as of this encounter
--- OUTSIDE RECORDS SUMMARY | 2025-03-14 10:28 | XMS_ITS | Encounter Summary ---
Author Organization [facility] Address [address] [place] [address] Care Team Providers Care Tar Kettle Runner Name Role Phone Kimberly Santillan MD Primary Care Provider [phone] Encounter Details Date Type Department Care Team (Late st Contact Info) Description 03/04/2023 Abstract [facility] Family Medicine [address] [place] [address] Kimberly Santillan MD [address] [place], [place] [phone] Social History Tobacco Use Types Packs/Day Years [...] on filedocumented in this encounter Care Teams Tar Kettle Runner Relationship Specialty Start Date End Date Kimberly Santillan MD [address] [place] [address] PCP - General Family Medicine 10/18/22 documented as of this encounter
--- OUTSIDE RECORDS SUMMARY | 2025-03-14 10:28 | XMS_ITS | Encounter Summary ---
Author Organization [facility] Address [id number] [address] [place] [address] Care Team Providers Care Teasel Gig Operator Name Role Phone Kimberly Santillan MD Primary Care Provider [phone] Reason for Referral * Respiratory Therapy (Routine) - Closed Specialty Diagnoses / Procedures Referred By Contac t Referred To Contact Diagnoses SOB (shortness of breath) Procedures Home O2 evaluation Amy Walker MD [address] [address] Phone: tel: fax: Referral ID Status Reason Start Date Expiration Date Visits Re quested Visits Authorized [id number] Closed 08/10/2021 08/10/2022 1 1 Encounter Details Date Type Department Care Team ([facility] Contact Info) Description 08/04/2021 Telephone [facility] Pulmonary/Sleep Medicine [address] [place] [address] Trish Aguilar MD [address] [place] [address] Social History Tobacco Use Types Packs/Day Years Used Date Smoking Tobacco: Former Cigarettes 1.5 35 1 960 - 1994 Smokeless Tobacco: Never Alcohol Use Standard Drinks/Week [...] have Coronavirus / COVID-19? No / Unsure 07/09/2021 6:31 AM EST documented as of this encounter Miscellaneous Notes * Telephone Encounter - Kellie Ortiz - 08/04/2021 2:18 PM EST Patient called to advise that she can not tolerate the CPAP machine and wants to send it back. She said that she is claustrophobic and the first night could only use it for 15 minutes and now the most she can tolerate it is 3-4 hours per night. She has been getting up in the mornings with headachesand nose bleeds. She would like to discuss other options. Patient advised that when she was in the halfway, she had oxygen at night and wanted to see if that was an option. * Telephone Encounter - Trish Aguilar MD - 08/04/2021 2:18 PM EST Images from the original note were not included. I don't know that there is evidence for O2 for the indication for adult VIPUL however. Will discuss O2 with sanjana YUNG. Has upcoming appt in September. 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 There was not hypovent on her titration. Unfortunately her PFTs without available muscle forces did not meet criteria for AVAPS, a therapy that I wonder if she would feelmore comfortable on. She has significant weakness in her hands that may be a barrier in applying a mask, for which she may avoid using a full face variety in case of need for emergent removal. I am not certain if insurance would cover the O2 if VIPUL is untreated. * Telephone Encounter - Amy Walker MD - 08/04/2021 2:18 PM EST Could do a home oxygen evaluation to see if she qualifies with exertion. * Telephone Encounter - Janice Gong LPN - 08/04/2021 2:18 PM EST The O2 testing needs to be done with in 30 days of a face to face visit. We can order it and have her do it the week before her September appointment if you want to go that route let me know and I will help pt schedule. * Telephone Encounter - Trish Aguilar MD - 08/04/2021 2:18 PM EST Will defer to KW upon her return - she is currently out of office. I suspect this is what she will have you do. Please update patient so she is aware and not awaiting a response. Thanks. * Telephone Encounter - Amy Walker MD - 08/04/2021 2:18 PM EST That's fine * Telephone Encounter - Janice Gong LPN - 08/04/2021 2:18 PM EST Pt will have O2 testing done the first week in September. Apt with Dr Aguilar at the end of August was cancelled and pt will see Dr Walker October 05. documented in this encounter Plan of Treatment Upcoming Encounters Date Type Department Care Team (Late st Contact Info) Description 06/13/2025 4:00 PM EST Office Visit [facility] [address] [place] [address] Tre Jiang MD [address] [place] [address] documented as of this encounter Goals Goal Patient Goal Type Associated Problems Recent Progress Patient-Stated? Author Return to Asst Anat General Yes Arina Monahan LSW Note: Evaluation of progress towards goal: Safe dc transition from hospital with return to [place] with PP services. documented as of this encounter Results * Home O2 evaluation (09/30/2021 3:01 PM EDT) Narrative MANUALLY TRANSCRIBED RESULTS - 09/30/2021 3:01 PM EDT Pulse Oximetry Report Recording Information Site of recording: nursing home facility Type: Comprehensive Respiratory Support: None (Room air) (Has CPAP which she is not using) Results: On Room Air Nocturnal SaO2: (80-97) Nocturnal HR: 81 bpm Resting SaO2: 96 % Resting HR: 77 bpm Exercise SaO2: 90 % Exercise HR: 89 bpm SaO2 <89% for 1 hour & 48.3 minutes during nocturnal portion of study Respiratory Therapist: Melvin Jennings RCP us Amy Walker MD RESPIRATORY CARE ORDERABLE S Final Result MANUALLY TRANSCRIBED RESULTS documented in this encounter Visit Diagnoses Diagnosis SOB (shortness of breath)- Primary Shortness of breath documented in this encounter Additional Health Concerns Infection Onset Date Last Indicated Resolved Time COVID-19 Rule-Out 01/03/2023 01/03/2023 01/03/2023 1:53 AM EDT COVID-19 Rule-Out 05/16/2023 05/16/2023 05/16/2023 8:52 AM EST documented as of this encounter Care Teams Teasel Gig Operator Relationship Specialty Start Date End Date Kimberly Santillan MD [address] [place] [address] PCP - General Family Medicine 10/04/18 documented as of this encounter
--- OUTSIDE RECORDS SUMMARY | 2025-03-14 10:28 | XMS_ITS | Encounter Summary ---
Author Organization [facility] Address [id number] [address] [place] [address] Care Team Providers Care Mother'S Helper Name Role Phone Kimberly Santillan MD Primary Care Provider [phone] Reason for Referral * Vascular (Routine) - Closed Specialty Diagnoses / Procedures Referred By Contnilson t Referred To Contact Diagnoses Bilateral carotid artery stenosis Procedures Vas carotid duplex bilateral Jose Sifuentes PA [address] LEFT [facility] 06/30/2023 [place] [address] Phone: tel: fax: [facility] [address] [place] [address] Phone: tel: Referral ID Status Reason Start Date Expiration Date Visits Re quested Visits Authorized [id number] Closed 01/05/2023 01/05/2024 1 1 Encounter Details Date Type Department Care Team ([facility] st Contact Info) Description 01/05/2023 Orders Only [facility] [place] [address] Jose Sifuentes, PA [address] [place] [address] Bilateral carotid artery stenosis (Primary Dx) Social History Tobacco Use Types Packs/Day Years [...] got money to buy more. Never True 01/04/2023 Within the past 12 months th e food we bought just didn't last and we didn't have money to get more. Never True 01/04/2023 Purpose - Life Answer Date Recorded Purpose [...] EST Office Visit [facility] [address] [place] [address] Tre Jiang MD [address] [place] [address] documented as of this encounter Goals Goal Patient Goal Type Associated Problems Recent Progress Patient-Stated? Author Return to Asst Anat General Yes Arina Monahan LSW Note: Evaluation of progress towards goal: Safe dc transition from hospital with return to [place] with PP services. documented as of this encounter Results * Vas carotid duplex bilateral (02/11/2023 1:41 PM EDT) Anatomical Region Laterality Modality Vascular Bilateral Ultrasound 02/11/2023 2:38 PM EDT Narrative 02/14/2023 11:12 AM EDT Previous: Previous carotid duplex exam performed 11/19/2020. Bilateral: <50% ICA. Right: Limited visualization of the carotid artery due to calcification and tortuousity. Maximum ICA velocity of 171/41 cm/sec, however, stated velocity may be underestimated because of calcific plaque and acoustic shadowing that may be hiding the area of maximum stenosis. Left: Limited visualization of the carotid artery due to patient position and tortuousity. Plaque with no significant ICA spectral Doppler or color flow disturbances; ICA 93/20 cm/sec. High resistive, antegrade vertebral artery flow. Conclusions: RIGHT: 50-69% stenosis of the internal carotid artery. Antegrade vertebral artery flow. LEFT: Plaque without significant stenosis (<50%) of the internal carotid artery. Antegrade vertebral artery flow. Procedure Note Ronan Canas, DO - 02/14/2023 Previous: Previous carotid duplex exam performed 11/19/2020. Bilateral:<50% ICA. Right: Limited visualization of the carotid artery due to calcificationand tortuousity. Maximum ICA velocity of 171/41 cm/sec, however, statedvelocity may be underestimated because of calcific plaque and acousticshadowing that may be hiding the area of maximum stenosis. Left: Limited visualization of the carotid artery due to patient positionand tortuousity. Plaque with no significant ICA spectral Doppler or colorflow disturbances; ICA 93/20 cm/sec. High resistive, antegrade vertebralartery flow. Conclusions: RIGHT: 50-69% stenosis of the internal carotid artery.Antegrade vertebral artery flow. LEFT: Plaque without significantstenosis (<50%) of the internal carotid artery. Antegrade vertebralartery flow. Jose WHEELER CV VASCULAR ORDERABLES Fin al Result documented in this encounter Visit Diagnoses Diagnosis Bilateral carotid artery stenosis- Primary Occlusion and stenosis of carotid artery without mention of cerebral infarction Bilateral carotid artery stenosis Occlusion and stenosis of carotid artery without mention of cerebral infarction documented in this encounter Additional Health Concerns Infection Onset Date Last Indicated Resolved Time COVID-19 Rule-Out 05/16/2023 05/16/2023 05/16/2023 8:52 AM EST documented as of this encounter Care Teams Mother'S Helper Relationship Specialty Start Date End Date Kimberly Santillan MD [address] [place] [address] PCP - General Family Medicine 10/04/18 documented as of this encounter
--- OUTSIDE RECORDS SUMMARY | 2025-03-14 10:28 | XMS_ITS | Encounter Summary ---
Author Organization [facility] Address [address] [place] [address] Care Team Providers Care Cloth Handler Name Role Phone Kimberly Santillan MD Primary Care Provider [phone] Encounter Details Date Type Department Care Team (Late st Contact Info) Description 02/02/2023 Abstract [facility] Family Medicine [address] [place] [address] Kimberly Santillan MD [address] [place], [place] [address] Social History Tobacco Use Types Packs/Day Years [...] on filedocumented in this encounter Care Teams Cloth Handler Relationship Specialty Start Date End Date Kimberly Santillan MD [address] [place] [address] PCP - General Family Medicine 10/18/22 documented as of this encounter
--- OUTSIDE RECORDS SUMMARY | 2025-03-14 10:28 | XMS_ITS | Encounter Summary ---
Author Organization [facility] Address [address] [place] [address] Care Team Providers Care Leather Softener Name Role Phone Kimberly Santillan MD Primary Care Provider [phone] Kimberly Santillan MD Unavailable [phone] Reason for Visit * Reason Comments Med Refill Encounter Details Date Type Department Care Team (Late st Contact Info) Description 10/23/2022 Refill [facility] Family Medicine [address] [place] [address] Kimberly Santillan MD [address] [place] [address] Mixed hyperlipidemia Social History Tobacco Use Types Packs/Day Years Used Date Smoking Tobacco: Former Cigarettes Q uit: 1994 Alcohol Use Standard Drinks/Week Comments Not Currently 0 (1 standard drink = 0.6 oz pur e alcohol) Comments Unknown Sex and Gender Information Value Date Recorded Sex Assigned at Not on file Legal Sex Female 7:17 PM EDT Gender Identity Female 08/11/2022 7:17 PM EDT Sexual Orientation Not on file documented as of this encounter Miscellaneous Notes * Telephone Encounter - Kimberly Santillan MD - 10/26/2022 9:01 AM EDT Refills sent. documented in this encounter Plan of Treatment Not on file documented as of this encounter Visit Diagnoses Diagnosis Mixed hyperlipidemia documented in this encounter Care Teams Leather Softener Relationship Specialty Start Date End Date Kimberly Santillan MD [address] [facility] [place] [address] PCP - General Family Medicine 10/18/22 Kimberly Santillan MD [address] [place] [address] PCP - ACO Reach 10/21/22 01/05/23 documented as of this encounter
--- OUTSIDE RECORDS SUMMARY | 2025-03-14 10:28 | XMS_ITS | Encounter Summary ---
Author Organization [facility] Address [address] [place] [address] Care Team Providers Care Apprentice Machinist Outside Name Role Phone Kimberly Santillan MD Primary Care Provider [phone] Encounter Details Date Type Department Care Team (Late st Contact Info) Description 01/19/2023 Abstract [facility] Family Medicine [address] [place] [address] Kimberly Santillan MD [address] [place], [place] [id number] Social History Tobacco Use Types Packs/Day Years [...] on filedocumented in this encounter Care Teams Apprentice Machinist Outside Relationship Specialty Start Date End Date Kimberly Santillan MD [address] [place] [address] PCP - General Family Medicine 10/18/22 documented as of this encounter
--- OUTSIDE RECORDS SUMMARY | 2025-03-14 10:28 | XMS_ITS | Encounter Summary ---
Author Organization [facility] Address [address] [facility] [place] [address] Care Team Providers Care Relay Shop Tester Name Role Phone Kimberly Santillan MD Primary Care Provider [phone] Encounter Details Date Type Department Care Team (Late st Contact Info) Description 04/04/2023 Abstract [facility] Family Medicine [address] [place] [address] Kimberly Santillan MD [address] [place], [place] [id number] Social History Tobacco Use Types Packs/Day Years [...] on filedocumented in this encounter Care Teams Relay Shop Tester Relationship Specialty Start Date End Date Kimberly Santillan MD [address] [place] [address] PCP - General Family Medicine 10/18/22 documented as of this encounter
--- OUTSIDE RECORDS SUMMARY | 2025-03-14 10:28 | XMS_ITS | Encounter Summary ---
Author Organization [employer] Address [id number] [address] [place] [address] Care Team Providers Care Database Security Administrator Name Role Phone Kimberly Santillan MD Primary Care Provider [phone] Encounter Details Date Type Department Care Team ([facility] st Contact Info) Description 04/08/2021 Telephone [facility] Pulmonary/Sleep Medicine [address] [place] [phone] Kateryna Chairez CMA Social History Tobacco Use Types Packs/Day [...] have Coronavirus / COVID-19? No / Unsure 04/03/2021 7:52 PM EDT documented as of this encounter Miscellaneous Notes * Telephone Encounter - Kateryna Chairez CNA - 04/08/2021 11:15 AM EST PT AWARE SS WAS POSITIVE AND THAT EM ORDERED TITRATION. PT AGREEABLE TO WAIT FOR SLEEP LAB TO CALL AND SCHEDULE. documented in this encounter Plan of Treatment Upcoming Encounters Date Type Department Care Team (Late st Contact Info) Description 06/13/2025 4:00 PM EST Office Visit [facility] [address] [place] [phone] Tre Jiang MD [address] [place], [place] [id number] documented as of this encounter Goals Goal Patient Goal Type Associated Problems Recent Progress Patient-Stated? Author Return to Asst Anat General Yes Arina Monahan, NIKIA Note: Evaluation of progress towards goal: Safe [...] documented as of this encounter Care Teams Database Security Administrator Relationship Specialty Start Date End Date Kimberly Santillan MD [address] [place] [address] PCP - General Family Medicine 10/04/18 documented as of this encounter
--- OUTSIDE RECORDS SUMMARY | 2025-03-14 10:28 | XMS_ITS | Encounter Summary ---
Author Organization [employer] Address [id number] [address] [place] [address] Care Team Providers Care Truck Striker Name Role Phone Kimberly Santillan MD Primary Care Provider [phone] Encounter Details Date Type Department Care Team (Late Contact Info) Description 03/08/2020 Abstract [facility] [address] [place] [phone] External, Scanning Provider Social History Tobacco Use Types Packs/Day Years Used Date Smoking Tobacco: Former Smokeless Tobacco: Never Alcohol Use Standard Drinks/Week Comments No 0 (1 standard drink = 0.6 oz pur e alcohol) Childcare Answer Date Recorded Childcare Unknown 11/06/2018 Employment Answer Date Recorded Employment Unknown 11/06/2018 Comments No Sex and Gender Information Value Date Recorded Sex Assigned at Not on file Legal Sex Female 11:23 AM EDT Gender Identity Not on file Sexual Orientation Not on file COVID-19 Exposure Response Date Recorded In the last month, have you been in contact with someone who was confirmed or suspected to have Coronavirus / COVID-19? No / Unsure 03/11/2020 1:37 PM EDT documented as of this encounter Plan of Treatment Upcoming Encounters Date Type Department Care Team (Late Contact Info) Description 06/13/2025 4:00 PM EST Office Visit [facility] [address] [place] [phone] Tre Jiang MD [address] [place] [address] documented as of this encounter Procedures Procedure Name Priority Date/Time Associated Diagnosis Comments URINE CULTURE WITH REFLEX TO URINALYSIS Routine 01/23/2020 documented in this encounter Results * Urine culture with reflex to urinalysis (01/23/2020) 01/23/2020 us Scanning Provider External URINE ORDERABLES Anna l Result MANUALLY TRANSCRIBED RESULTS documented in this encounter Visit Diagnoses Not on filedocumented in this encounter Additional Health Concerns Infection Onset Date Last Indicated Resolved Time COVID-19 Rule-Out 01/03/2023 01/03/2023 01/03/2023 1:53 AM EDT COVID-19 Rule-Out 05/16/2023 05/16/2023 05/16/2023 8:52 AM EST documented as of this encounter Care Teams Truck Striker Relationship Specialty Start Date End Date Kimberly Santillan MD [address] [place] [address] PCP - General Family Medicine 10/04/18 documented as of this encounter
--- OUTSIDE RECORDS SUMMARY | 2025-03-14 10:28 | XMS_ITS | Encounter Summary ---
Author Organization [facility] Address [address] [place] [address] Care Team Providers Care Photoresist Printer Name Role Phone Kimberly Santillan MD Primary Care Provider [phone] Encounter Details Date Type Department Care Team (Late st Contact Info) Description 01/10/2023 Abstract [facility] Family Medicine [address] [place] [address] Kimberly Santillan MD [address] [place], [place] [phone] Social History Tobacco Use Types Packs/Day Years [...] on filedocumented in this encounter Care Teams Photoresist Printer Relationship Specialty Start Date End Date Kimberly Santillan MD [address] [place] [address] PCP - General Family Medicine 10/18/22 documented as of this encounter
--- OUTSIDE RECORDS SUMMARY | 2025-03-14 10:28 | XMS_ITS | Encounter Summary ---
Author Organization [facility] Address [address] [place] [address] Care Team Providers Care Ramp Flight Attendant Name Role Phone Kimberly Santillan MD Primary Care Provider [phone] Encounter Details Date Type Department Care Team (Late st Contact Info) Description 03/16/2023 Abstract [facility] Family Medicine [address] [place] [address] Kimberly Santillan MD [address] [place], [place] [phone] Social History Tobacco Use Types Packs/Day Years [...] on filedocumented in this encounter Care Teams Ramp Flight Attendant Relationship Specialty Start Date End Date Kimberly Santillan MD [address] [place] [address] PCP - General Family Medicine 10/18/22 documented as of this encounter
--- OUTSIDE RECORDS SUMMARY | 2025-03-14 10:28 | XMS_ITS | Encounter Summary ---
Author Organization [facility] Address [address] [facility] [place] [address] Care Team Providers Care Prehemmer Name Role Phone Kimberly Santillan MD Primary Care Provider [phone] Encounter Details Date Type Department Care Team (Late st Contact Info) Description 03/28/2023 Abstract [facility] Family Medicine [address] [place] [address] Kimberly Santillan MD [address] [place], [place] [phone] Social History Tobacco Use Types Packs/Day Years [...] on filedocumented in this encounter Care Teams Prehemmer Relationship Specialty Start Date End Date Kimberly Santillan MD [address] [place] [address] PCP - General Family Medicine 10/18/22 documented as of this encounter
--- OUTSIDE RECORDS SUMMARY | 2025-03-14 10:28 | XMS_ITS | Clinical Summary ---
Author Organization [facility] Address [address] [place] [address] Care Team Providers Care Charge Master Coordinator Name Role Phone Kimberly Santillan MD Primary Care Provider [phone] Allergies Active Allergy Reactions Criticality Noted Date Comments Baclofen 03/17/2021 Other Reaction(s): headache, fatigue Hydralazine Unknown 10/18/2022 Latex Itching 10/18/2022 Metformin 03/17/2021 Other Reaction(s): Unknown Nisoldipine Unknown 02/26/2025 Penicillins Hives 10/18/2022 Pneumococcal 13-More Conj Vacc Swelling 10/18/2022 Soybean-Containing Drug Products Rash Low 03/17/2021 Other Reaction(s): RASH Sulfa Antibiotics Hives 10/18/2022 Medications acetaminophen (8 Hour Arthritis Pain) 650 MG ER tablet Take 1,300 mg by mouth 2 times daily as needed for mild pain. 023 Active diclofenac sodium (Aspercreme Arthritis Pain) 1 % gel Apply topically 2 times daily as needed for pain. Active cholecalciferol (Vitamin D-3) 50 MCG (1999) tablet 1 capsule. Ac tive Docusate Sodium (DSS) 100 MG capsule Take 100 mg by mouth in the morning. Active magnesium oxide (Mag-Ox) 400 MG tablet Take 400 mg by mouth in the morning. Changed to daily 03/23/23. 021 Active sennosides (Senokot) 8.6 MG tablet 2 tablets 1 (one) time each day at the same time. PRN Active Multiple Vitamins-Minerals (CENTRUM SILVER 50+WOMEN PO) Take by mouth Daily. Active omega-3 (Fish Oil) 1000 MG capsule Take 2 g by mouth in the morning. Active aspirin 81 MG EC tablet Take 81 mg by mouth in the morning. Active calcium citrate (Calcitrate) 950 (200 Ca) MG tablet Take 950 mg by mouth in the morning. Active b complex vitamins capsule Take 1 capsule by mouth in the morning. Active Melatonin 1 MG capsule Take 5 mg by mouth as needed at bedtime Active polyethylene glycol, PEG, 3350 (ClearLax) 17 GM/SCOOP powder Take 17 g by mouth in the morning. As needed. Active metoprolol succinate XL (Toprol-XL) 25 MG 24 hr tabletIndications:Essen tial (primary) hypertension Take 1 tablet (25 mg) by mouth Daily Do not crush or chew. 180 tablet 1 Active Additional Information Patient taking differently: 50 mgOral Daily, Do not crush or chew., Reported on 02/26/2025 fluticasone (Flonase) 50 MCG/ACT nasal sprayIndications:Chroni c rhinitis ADMINISTER 1 SPRAY INTO EACH NOSTRIL DAILY SHAKE GENTLY. BEFORE FIRST USE, PRIME PUMP. 48 mL 1 024 Active loratadine (Claritin) 10 MG tabletIndications:Seaso nal allergies Take 1 tablet (10 mg) by mouth Daily 30 tablet 11 024 2024 Active traMADol (Ultram) 50 MG tablet Take 50 mg by mouth every 8 (eight) hours if needed for severe pain Active Propylene Glycol 0.6 % solution Administer into affected eye(s) Active ammonium lactate (Lac-Hydrin) 12 % lotionIndications:Dry skin APPLY TO AFFECTED AREA DAILY NEEDED FOR DRY SKIN 225 mL 1 024 Active ipratropium (Atrovent) 0.06 % nasal sprayIndications:Allerg ic rhinitis, unspecified seasonality, unspecified trigger INSTILL 2 SPRAYS INTO EACH NOSTRIL IN THE MORNING, AT NOON, IN THE EVENING, AND BEFORE BEDTIME 45 mL 1 025 Active albuterol HFA 90 mcg/act inhalerIndications:Acut e bronchitis, unspecified organism Inhale 2 puffs every 4 (four) hours if needed for wheezing or shortness of breath 18 g 025 Active Additional Information Patient not taking.Reported on 02/26/2025 mirabegron ER (Myrbetriq) 50 MG 24 hr tabletIndications:Urge incontinence of urine Take 1 tablet (50 mg) by mouth Daily 30 tablet 6 025 Active Albuterol-Budesonide (Airsupra) 90-80 MCG/ACT aerosolIndications:Whee zing Inhale 2 puffs every 6 (six) hours if needed (SOB, wheezing) 10.7 g 025 Active Additional Information Patient not taking.Reported on 02/26/2025 lisinopril 2.5 MG tabletIndications:Type 2 diabetes mellitus with stage 3b chronic kidney disease, with long-term current use of insulin (HCC) TAKE 1 TABLET BY MOUTH EVERY DAY 90 tablet 1 025 Active clopidogrel (Plavix) 75 MG tabletIndications:Pure hypercholesterolemia TAKE 1 TABLET (75 MG) BY MOUTH IN THE MORNING 90 tablet 1 025 Active levothyroxine (Synthroid, Levoxyl) 50 MCG tabletIndications:Acqui red hypothyroidism TAKE 1 TABLET BY MOUTH IN THE MORNING BEFORE BREAKFAST. 90 tablet 1 025 Active amLODIPine (Norvasc) 10 MG tabletIndications:Essen tial (primary) hypertension TAKE 1 TABLET BY MOUTH DAILY. 90 tablet 1 025 Active potassium chloride CR (Klor-Con M20) 20 MEQ ER tabletIndications:Chron ic diastolic heart failure (HCC) TAKE 1 TABLET (20 MEQ) BY MOUTH IN THE MORNING 90 tablet 1 025 Active atorvastatin (Lipitor) 80 MG tabletIndications:Mixed hyperlipidemia Take 1 tablet (80 mg) by mouth Daily 90 tablet 1 025 2024 Active DULoxetine (Cymbalta) [address] capsuleIndications:Epis ode of recurrent major depressive disorder, unspecified depression episode severity TAKE 1 CAPSULE (60 MG) BY MOUTH IN THE MORNING 90 capsule 1 025 Active furosemide (Lasix) 40 MG tabletIndications:Acute on chronic diastolic congestive heart failure (HCC) TAKE 1 TABLET BY MOUTH EVERY DAY IN THE MORNING 90 tablet 1 025 Active Farxiga 10 MGIndications:Chronic diastolic heart failure (HCC),Type 2 diabetes mellitus with stage 3b chronic kidney disease, with long-term current use of insulin (HCC) TAKE 1 TABLET (10 MG) BY MOUTH DAILY. 90 tablet 1 Active Continuous Glucose Sensor (FreeStyle Hima 2 Sensor) miscIndications:Type 2 diabetes mellitus with neurological manifestation (HCC) Inject 1 Device under the skin every 14 (fourteen) days 6 each 3 025 2024 Active Alcohol Swabs (Alcohol Prep) padsIndications:Type 2 diabetes mellitus with neurological manifestation (HCC) 1 Pad in the morning and 1 Pad at noon and 1 Pad in the evening and 1 Pad before bedtime. 360 each 3 025 Active insulin pen needle (Droplet Pen [place]) 31G x 5 mm miscIndications:Type 2 diabetes mellitus with neurological manifestation (HCC) Inject 1 each under the skin in the morning and 1 each at noon and 1 each in the evening and 1 each before bedtime. Inject before meals. 360 each 3 025 Active insulin aspart FlexPen (NovoLOG) 100 UNIT/ML penIndications:Type 2 diabetes mellitus without complication, without long-term current use of insulin (HCC) AC/HS 150-199=2 UNIT 200-249=6 UNITS 250-299=8 UNITS 300-349=10 UNITS 350-399=12 UNITS 400-401=14 UNITS and IF BS IS OVER 400 CALL DOCTOR 10 mL 1 025 Active insulin glargine-yfgn (Semglee-yfgn) 100 UNIT/ML penIndications:Type 2 diabetes mellitus with neurological manifestation (HCC) Inject 12 Units under the skin Daily 3 mL 3 025 Active guaiFENesin (Mucinex) 600 MG 12 hr tabletIndications:Acute bronchitis, unspecified organism Take 2 tablets (1,200 mg) by mouth in the morning and 2 tablets (1,200 mg) before bedtime. Do not crush, chew, or split.. 120 tablet 11 024 2024 Additional Information Patient not taking.Reported on 02/26/2025 insulin glargine-yfgn (Semglee-yfgn) 100 UNIT/ML penIndications:Type 2 diabetes mellitus with neurological manifestation (HCC) Inject 10 Units under the skin Daily 3 mL 3 025 2024 Discontin ued(Dose adjustmen t) HYDROcodone-acetaminoph en ([place]) 5-325 MG tabletIndications:Sever e low back pain Take 1 tablet by mouth every 6 (six) hours if needed for severe pain for up to 7 days 28 tablet 025 2024 Active Problems Problem Noted Date Diagnosed Date Acute kidney failure, unspecified 02/26/2025 Hyperkalemia 02/26/2025 Low back pain, unspecified 02/26/2025 Urinary tract infection, site not specified 01/30 Carotid atherosclerosis 01/28/2023 Constipation by delayed colonic transit 01/29/20 Recurrent major depressive disorder, in partial remission 01/28/2023 Assessment & Plan (11/30/2024 9:54 AM EDT): Stable on current regimen. Assessment & Plan (09/09/2023 2:55 PM EDT): Mutiple stressors at [place]. She is working through them as much as she can. 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 Will stop glipizide. Assessment & Plan (09/09/2023 2:55 PM EDT): Numbers not controlled well enough. Increase short acting to cover meals. Recheck in 2 months to see if helping. Assessment & Plan (07/15/2023 7:36 PM EST): She has a list of BS and many are over 200. However, she is getting her BS checked after each meal and not before. BS are still too high but would like to get a more accurate number, so we know how aggressive to be. She says she is taking jardiance but it is not on her list from [place]. Discussed getting more numbers and she will get those to [facility] weekly. May have to try another insulin. Acute on chronic diastolic congestive heart fail ure 01/03/2023 Assessment & Plan (11/30/2024 9:54 AM EDT): No angina. No signs of acute CHF. Acute respiratory failure with hypoxia and hyper capnia 01/03/2023 Primary localized osteoarthrosis of multiple sit es 10/28/2020 Hypomagnesemia 09/14/2020 Hypokalemia due to excessive gastrointestinal loss of potassium 09/13/2020 Viral gastroenteritis 09/11/2020 Generalized OA 07/30/2020 Dependence on nocturnal oxygen therapy 1 Loss of appetite 06/03/2020 Other chronic pain 05/15/2020 Advanced age 1104/15/2020 Abnormal EKG 04/01/2020 Elevated troponin 04/01/2020 Orthostatic hypotension 04/01/2020 Macrocytosis 01/11/2020 Carotid artery occlusion 09/19/2019 Acquired hypothyroidism 09/18/2019 Assessment & Plan (11/30/2024 9:54 AM EDT): TSH today. Gastroesophageal reflux disease 04/19/2019 Dysphagia 03/08/2019 Overactive bladder 11/14/2018 Overview (01/28/2023): 11/14/18: Overactive bladder with normal exam. Plan [...] she would be interested in considering eCOIN Last Assessment & Plan: She had discontinued anticholinergics in the past but it sounds like this was later clear through neurology. We discussed the concerns for memory issues with anticholinergic use. She understands and would like to proceed. We will see her back in 3 months or sooner if any problems Other atopic dermatitis 07/20/2018 Vitamin D deficiency 05/09/2018 Allergic rhinitis 03/01/2018 Sialolithiasis 03/01/2018 Chronic maxillary sinusitis 01/18/2018 Urge incontinence of urine 11/09/2017 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 Peripheral angiopathy due to type 2 diabetes iveth litus 07/14/2017 Blurred vision 06/08/2017 Raynaud's disease 06/02/2017 Bilateral carotid artery stenosis 02/09/2017 TIA (transient ischemic attack) 01/24/2017 Spinal stenosis of lumbar re gion without neurogenic claudication 12/15/2016 Assessment & Plan (02/26/2025 8:04 PM EDT): Orders: Ambulatory referral to Pain Medicine; Future Grief 11/17/2016 Pain in right hip 08/20/2016 Spondylosis without myelopat hy or radiculopathy, lumbar region 08/20/2016 Spondylosis without myelopat hy or radiculopathy, lumbosacral region 08/20/2016 Chronic foot ulcer 06/15/2016 Diabetic renal disease 01/07/2016 Assessment & Plan (02/26/2025 8:04 PM EDT): Orders: Comprehensive metabolic panel; Future Hemoglobin A1c; Future Stage 3 chronic kidney disease 01/07/2016 Assessment & Plan (02/26/2025 8:04 PM EDT): Assessment & Plan (11/30/2024 9:54 AM EDT): Labs are stable. Assessment & Plan (07/15/2023 7:38 PM EST): Stable. Acquired spondylolisthesis 12/02/2015 Displacement of lumbar inter vertebral disc without myelopathy 12/02/2015 Allergic rhinitis due to pollen 11/12/2015 Congenital hiatus hernia 11/12/2015 Contracture of palmar fascia 11/12/2015 Hyperlipidemia 11/12/2015 Other specified joint disorders, unspecified jerri nt 11/12/2015 Trigger finger, acquired 11/12/2015 Pure hypercholesterolemia 03/19/2015 Assessment & Plan (11/30/2024 9:54 AM EDT): Lipids today. 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 Major depression, recurrent 11/27/2009 Assessment & Plan (07/15/2023 7:39 PM EST): Stable on current medications. Obstructive sleep apnea 11/27/2009 Assessment & Plan (11/30/2024 9:54 AM EDT): Refuses CPAP. Assessment & Plan (11/29/2024 2:07 PM EDT): Refuses CPAP. Pain in joint, pelvic region and thigh 0 Restrictive lung disease 11/27/2009 Encounters Date Type Department Care Team Description 03/14/2025 Patient Outreach [place] [id number] [place] [address] Theresa Dawn RN 03/13/2025 Telephone [place] [id number] [facility] [place] [phone] Kimberly Santillan MD 03/01/2025 Patient Outreach [place] [address] [place] [address] Theresa Dawn RN 03/01/2025 Results Follow-Up [facility] [address] [facility] [place] [address] Kimberly Santillan MD Comprehensive metabolic panel, Amylase, Lipase, Hemoglobin A1c 02/27/2025 Telephone [facility] [address] [facility] [place] [address] Kimberly Byers MA 02/26/2025 3:30 PM EDT Office Visit [place] [id number] [facility] [place] [phone] Kimberly Santillan MD Right upper quadrant abdominal pain (Primary Dx); Constipation, unspecified constipation type; Diabetic nephropathy associated with type 2 diabetes mellitus (HCC); Elevated liver enzymes; Stage 3b chronic kidney disease (CMS-HCC); Spinal stenosis of lumbar region without neurogenic claudication 02/26/2025 Bamboo flowsheet [facility] [address] [place] [phone] Kimberly Santillan MD 02/26/2025 Travel 02/18/2025 Patient Outreach [facility] [address] [place] [address] Theresa Dawn, JESSIKA 02/16/2025 Telephone [facility] [address] [place] [phone] Mayelin Tyson, SABRINA 02/11/2025 Patient Outreach [facility] [address] [place] [address] Theresa Dawn RN 02/09/2025 Telephone [facility] [place] [address] 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 [address] Theresa Dawn RN 02/04/2025 Telephone [facility] [address] [place] [phone] Mayelin Tyson, SABRINA 02/01/2025 Patient Outreach [facility] [address] [place] [address] Theresa Dawn, JESSIKA 01/31/2025 Orders Only [facility] [place] [address] [place] [address] Kimberly Santillan MD 01/30/2025 Patient Outreach [facility] [address] [place] [address] Theresa Dawn RN 01/17/2025 Telephone [facility] [place] [phone] Kimberly Santillan MD 01/09/2025 Patient Outreach [facility] [address] [place] [address] Kimberly Elliott, JESSIKA 01/09/2025 Telephone [facility] [address] [place] [address] Kimberly Santillan MD 12/31/2024 Patient Outreach [facility] [address] [place] [address] Theresa Dawn RN 12/17/2024 Patient Outreach [facility] [address] [place] [address] Theresa Dawn, JESSIKA 12/12/2024 2:15 PM EDT Ancillary Procedure [facility] [address] [place] [address] Bilateral carotid artery stenosis 12/12/2024 Travel from Last 3 Months Immunizations Immunization Administration Dates Next Due Influenza, High Dose Seasona l, Preservative Free 02/16/2019,03/08/2018 Influenza, Seasonal, Quadriv alent, Adjuvanted 03/11/2021 Influenza, injectable, quadrivalent 02/08/2020,1 06/05/2016 Influenza, injectable, quadr ivalent, preservative free 04/05/2017,04/08/2016,03/05/2012 Influenza, seasonal, injecta ble, preservative free 03/06/2015 Pfizer Purple Cap SARS-CoV-2 Vaccination 021 Pneumococcal Conjugate PCV 13 08/23/2016 Pneumococcal Conjugate PCV 20 01/19/2024 Pneumococcal Polysaccharide PPSV23 03/28/2009 RSV, recombinant, protein ambrosio bunit RSVpreF, adjuvant reconstitu, 120mcg/0.5mL, PF (Arexvy) 12/18/2024 Family History Medical History Relation Name Comments Diabetes, heart disease Brother 3 nasal pharynx cancer [Other] Father Heart disease, diabetes Mother Relation Name Status Comments Brother 3 Daughter 1 Father Mother Son 1 Social History Tobacco Use Types Packs/Day Years Used Date Smoking Tobacco: Former Cigarettes Q uit: 1994 Smokeless Tobacco: Former Tobacco Cessation:Counseling Given: Not Answered Alcohol Use Standard Drinks/Week Comments Not Currently [...] PM EDT Sexual Orientation Not on file Last Filed Vital Signs Vital Sign Reading Time Taken Comments Blood Pressure 126/74 02/26/2025 3:32 PM EDT Pulse 76 02/26/2025 3:32 PM EDT Temperature 36.7 C (98 F) 06/27/2024 1:48 PM EST Respiratory Rate 18 01/28/2023 3:00 PM EDT Oxygen Saturation 93% 02/26/2025 3:32 PM EDT Inhaled Oxygen Concentration - - Weight 66.7 kg (147 lb) 02/26/2025 3:32 PM EDT Height 160 cm (5' 3 ) 02/26/2025 3:32 PM EDT Body Mass Index 26.04 02/26/2025 3:32 PM EDT Plan of Treatment Health Maintenance Due Date Last Done Comments Diabetes: Urine Protein Screening 04/17/2025 04/17/2024, 01/28/2023 Diabetes: Hemoglobin A1C 05/28/2025 025, 11/29/2024, 04/17/2024, Additional history exists Diabetes: Retinopathy Screening 10/09/2025 10/09/2024, 02/27/2024, 10/06/2023, Additional history exists Influenza Vaccine (#1) 2025 , 02/08/2020, 02/16/2019, Additional history exists Postponed from 01/28/2025 (Patient Refused) Pneumococcal Vaccine: 65+ Years Completed 01/19/2024, 08/23/2016, 03/28/2009 Procedures Procedure Name Priority Date/Time Associated Diagnosis Comments HEMOGLOBIN A1C Routine 02/26/2025 4:11 PM EDT Diabetic nephropathy associated with type 2 diabetes mellitus (HCC) LIPASE Routine 02/26/2025 4:11 PM EDT Right upper quadrant abdominal pain AMYLASE Routine 02/26/2025 4:11 PM EDT Right upper quadrant abdominal pain COMPREHENSIVE METABOLIC PANEL Routine 02/26/2025 4:11 PM EDT Right upper quadrant abdominal pain Diabetic nephropathy associated with type 2 diabetes mellitus (HCC) VAS US CAROTID ARTERY DUPLEX BILATERAL Routine 12/12/2024 2:57 PM EDT Bilateral carotid artery stenosis DIABETIC RETINOPATHY SCREENING - OU - BOTH EYES Routine 10/09/2024 10:26 AM EDT MICROALBUMIN / CREATININE URINE RATIO Routine 04/17/2024 3:56 PM EST Type 2 diabetes mellitus without complication, without long-term current use of insulin (HCC) from Last 3 Months or Most Recently Relevant to Health Maintenance Results * (ABNORMAL) Lipase (02/26/2025 4:11 PM EDT) LIPASE 84(H) 7 - 60 U/L [facility] Blood Venous blood specimen / Unknown 02/26/2025 4:11 PM EDT 02/26/2025 4:11 PM EDT Narrative Resulting Agency Comment Performing Organization Information Site ID: QPT Name: [facility] Address: [address] [place] [address], [address] [place] [phone] Director: Hola Murray MD us Kimberly Santillan MD LAB BLOOD ORDERABLES Final Re sult [facility] * (ABNORMAL) Hemoglobin A1c (02/26/2025 4:11 PM EDT) Hemoglobin A1C 8.8(H) <5.7 % [facility] Comment: For someone without known diabetes, a hemoglobin A1c value of 6.5% or greater indicates that they may have diabetes and this should be confirmed with a follow-up test. For someone with known diabetes, a value <7% indicates that their diabetes is well controlled and a value greater than or equal to 7% indicates suboptimal control. A1c targets should be individualized based on duration of diabetes, age, comorbid conditions, and other considerations. Currently, no consensus exists regarding use of hemoglobin A1c for diagnosis of diabetes for children. Blood Venous blood specimen / Unknown 02/26/2025 4:11 PM EDT 02/26/2025 4:11 PM EDT Narrative Resulting Agency Comment Performing Organization Information Site ID: QPT Name: [facility] Address: [address] [place] [address], [address] [place], [place] [id number] Director: Hola Murray MD Kimberly Santillan MD LAB BLOOD ORDERABLES Final Re sult Performing Organization Address [facility] de Phone Number [facility] * (ABNORMAL) Amylase (02/26/2025 4:11 PM EDT) AMYLASE 126(H) 21 - 101 U/L [facility] Blood Venous blood specimen / Unknown 02/26/2025 4:11 PM EDT 02/26/2025 4:11 PM EDT Narrative Resulting Agency Comment Performing Organization Information Site ID: QPT Name: [facility] Address: [address] [place] [address], [address] [place] [phone] Director: Hola Murray MD us Kimberly Santillan MD LAB BLOOD ORDERABLES Final Re sult Performing Organization Address [facility] de Phone Number [facility] * (ABNORMAL) Comprehensive metabolic panel (02/26/2025 4:11 PM EDT) Glucose 205(H) 65 - 99 mg/dL [facility] Comment: Fasting reference interval For someone without known diabetes, a glucose value >125 mg/dL indicates that they may have diabetes and this should be confirmed with a follow-up test. BUN 64(H) 7 - 25 mg/dL [facility] Creatinine 2.47(H) 0.60 - 0.95 mg/dL [facility] EGFR 19(L) > OR = 60 mL/min/1.7 3m2 [facility] BUN/CREATININE RATIO 26(H) 6 - 22 (calc) [facility] Sodium 138 135 - 146 mmol/L [facility] Potassium, Bld 5.0 3.5 - 5.3 mmol/L [facility] Chloride 100 98 - 110 mmol/L [facility] Carbon Dioxide 22 20 - 32 mmol/L [facility] Calcium 9.6 8.6 - 10.4 mg/dL [facility] PROTEIN, TOTAL 6.9 6.1 - 8.1 g/dL [facility] ALBUMIN 3.8 3.6 - 5.1 g/dL [facility] GLOBULIN 3.1 1.9 - 3.7 g/dL (calc) [facility] ALBUMIN/GLOBULIN RATIO 1.2 1.0 - 2.5 (calc) [facility] BILIRUBIN, TOTAL 0.3 0.2 - 1.2 mg/dL [facility] ALKALINE PHOSPHATASE 124 37 - 153 U/L [facility] AST 15 10 - 35 U/L [facility] ALT 18 6 - 29 U/L [facility] Blood Venous blood specimen / Unknown 02/26/2025 4:11 PM EDT 02/26/2025 4:11 PM EDT Narrative Resulting Agency Comment Performing Organization Information Site ID: QPT Name: [facility] Address: [address] [place] [address], [address] [place] [phone] Director: Hola Murray MD us Kimberly Santillan MD LAB BLOOD ORDERABLES Final Re sult [facility] * Vascular US carotid artery duplex bilateral (12/12/2024 2:57 PM EDT) Anatomical Region Laterality Modality Neck Ultrasound 12/12/2024 3:40 PM EDT Impressions 12/12/2024 3:43 PM EDT Impression: Less than 50% stenosis, bilateral internal carotid arteries. Validated velocity measurements with angiographic measurements, velocity criteria are extrapolated from diameter data as defined by the Society of Radiologist in Ultrasound Consensus Conference Radiology 2003; 229;340-346 . ELECTRONICALLY SIGNED BY: Roberto Maria MD Narrative 12/12/2024 3:43 PM EDT Carotid Ultrasound Examination Clinical information: Occlusion/stenosis carotid arteries. Comparison: None. Findings Grayscale and color Doppler ultrasound examination of the carotid and vertebral artery systems bilaterally. Maximum peak systolic velocity (PSV) / end diastolic velocity (EDV) measurements were obtained. Right Carotid System Right Common Carotid Artery (RCCA): 87/15 cm/s. Right carotid bulb: 106/13 cm/s. Right Internal Carotid Artery (DENA): 168/45 cm/s. Right External Carotid Artery (RECA): 190 cm/s. Right Vertebral Artery (RVA): Antegrade flow. Right ICA/CCA ratio: 1.94 Calcification right carotid bifurcation, and origin of internal/external carotid arteries. Left Carotid System Left Common Carotid Artery (LCCA): 61/13 cm/s. Left carotid bulb: 77/16 cm/s. Left Internal Carotid Artery (LICA): 97/22 cm/s. Left External Carotid Artery (LECA): 160 cm/s. Left Vertebral Artery (LVA): Antegrade flow. Left ICA/CCA ratio: 1.46 Calcification left carotid bifurcation and origin of internal and external carotid arteries. Procedure Note SignerRoberto MD - 12/12/2024 Carotid Ultrasound Examination Clinical information: Occlusion/stenosis carotid arteries. Comparison: None. Findings Grayscale and color Doppler ultrasound examination of the carotid andvertebral artery systems bilaterally. Maximum peak systolic velocity (PSV)/ end diastolic velocity (EDV) measurements were obtained. Right Carotid System Right Common Carotid Artery (RCCA): 87/15 cm/s. Right carotid bulb: 106/13 cm/s. Right Internal Carotid Artery (DENA): 168/45 cm/s. Right External Carotid Artery (RECA): 190 cm/s. Right Vertebral Artery (RVA): Antegrade flow. Right ICA/CCA ratio: 1.94 Calcification right carotid bifurcation, and origin of internal/externalcarotid arteries. Left Carotid System Left Common Carotid Artery (LCCA): 61/13 cm/s. Left carotid bulb: 77/16 cm/s. Left Internal Carotid Artery (LICA): 97/22 cm/s. Left External Carotid Artery (LECA): 160 cm/s. Left Vertebral Artery (LVA): Antegrade flow. Left ICA/CCA ratio: 1.46 Calcification left carotid bifurcation and origin of internal and externalcarotid arteries. IMPRESSION: Impression: Less than 50% stenosis, bilateral internal carotid arteries. Validated velocity measurements with angiographic measurements, velocitycriteria are extrapolated from diameter data as defined by the Society ofRadiologist in Ultrasound Consensus Conference Radiology 2003;229;340-346 . ELECTRONICALLY SIGNED BY: Roberto Maria MD us Kimberly Santillan MD IMG US PROCEDURES Final Resul t * Diabetic Retinopathy Screening - OU - Both Eyes (10/09/2024 10:26 AM EDT) Anatomical Region Laterality Modality Head Other us Kimberly Santillan MD OPHTH PHOTOGRAPHY Final Resul t * (ABNORMAL) Microalbumin / creatinine urine ratio (04/17/2024 3:56 PM EST) CREATININE, RANDOM URINE 40 20 - 275 mg/dL [facility] ALBUMIN, URINE 71.7 See Note: mg/dL [facility] Comment: Reference Range: Reference Range Not established Results verified by repeat analysis on dilution. ALBUMIN/CREATININ E RATIO, RANDOM URINE 1,793(H) <30 mg/g creat [facility] Comment: The ADA defines abnormalities in albumin excretion as follows: Albuminuria Category Result (mg/g creatinine) Normal to Mildly increased <30 Moderately increased 30-299 Severely increased > OR = 300 The ADA recommends that at least two of three specimens collected within a 3-6 month period be abnormal before considering a patient to be within a diagnostic category. Urine Urine specimen obtained by clean catch procedure / Unknown 04/17/2024 3:56 PM EST 04/17/2024 3:57 PM EST Narrative Resulting Agency Comment Performing Organization Information Site ID: [id number] Name: [facility] [employer] Address: [address] [place] [address], [address] [place] [id number] Director: Hola Murray MD us Kimberly Santillan MD LAB URINE ORDERABLES Final Re sult [facility] from Last 3 Months or Most Recently Relevant to Health Maintenance Insurance [address] [place] [id number] MEDICAID [place] [employer] MEDICARE Advance Directives Documents on File Type Date Recorded Patient Fraternity House Cook Expl anation Power of Military Education Coordinator 07/25/2023 2:53 PM healt hcare POA Advance Directives and Living Will 04/09/2020 2020-04-09 dnrcc Advance Directives and Living Will 04/01/2020 DNR Form Advance Directives and Living Will 07/20/2018 2017-12-16 Body to science Advance Directives and Living Will 07/20/2018 2018-07-20 living wi Care Teams Charge Master Coordinator Relationship Specialty Start Date End Date Kimberly Santillan MD [address] [place] [facility] [place] [address] PCP - General Family Medicine 10/18/22
--- OUTSIDE RECORDS SUMMARY | 2025-03-14 10:28 | XMS_ITS | Encounter Summary ---
Author Organization [employer] Address [id number] [address] [place] [address] Care Team Providers Care Civil Cad Tech Name Role Phone Kimberly Santillan MD Primary Care Provider [phone] Encounter Details Date Type Department Care Team ([facility] Contact Info) Description 02/06/2020 Telephone [facility] [address] [place] [phone] Melody Aviles PA [address] [place] [phone] Social History Tobacco Use Types Packs/Day Years [...] have Coronavirus / COVID-19? No / Unsure 02/06/2020 1:21 PM EDT documented as of this encounter Miscellaneous Notes * Telephone Encounter - LIAM Jameson - 02/06/2020 1:52 PM EDT Roselyn: Can we get the final report from her urine culture 01/22 Ledy: Please schedule her to see Dr. Castanon in one year * Telephone Encounter - Roselyn Guzmán LPN - 02/06/2020 1:52 PM EDT [facility] is sending a copy over of the final report. Once I get it I will send to you. Thank you. documented in this encounter Plan of Treatment Upcoming Encounters Date Type Department Care Team (Late st Contact Info) Description 06/13/2025 4:00 PM EST Office Visit [facility] [address] [place] [phone] Tre Jiang MD [address] [place], [place] [phone] documented as of this encounter Visit Diagnoses Not on filedocumented in this encounter Additional Health Concerns Infection Onset Date Last Indicated Resolved Time COVID-19 Rule-Out 01/03/2023 01/03/2023 01/03/2023 1:53 AM EDT COVID-19 Rule-Out 05/16/2023 05/16/2023 05/16/2023 8:52 AM EST documented as of this encounter Care Teams Civil Cad Tech Relationship Specialty Start Date End Date Kimberly Santillan MD [address] [place] [address] PCP - General Family Medicine 10/04/18 documented as of this encounter
--- OUTSIDE RECORDS SUMMARY | 2025-03-14 10:28 | XMS_ITS | Encounter Summary ---
Author Organization [facility] Address [address] [place] [address] Care Team Providers Care Receiving Barn Custodian Name Role Phone Kimberly Santillan MD Primary Care Provider [phone] Encounter Details Date Type Department Care Team (Late st Contact Info) Description 01/07/[address] [facility] Family Medicine [address] [place] [address] Kimberly Santillan MD [address] [place], [place] [phone] Social History Tobacco Use Types Packs/Day Years [...] on filedocumented in this encounter Care Teams Receiving Barn Custodian Relationship Specialty Start Date End Date Kimberly Santillan MD [address] [place] [address] PCP - General Family Medicine 10/18/22 documented as of this encounter
--- OUTSIDE RECORDS SUMMARY | 2025-03-14 10:28 | XMS_ITS | Encounter Summary ---
Author Organization [facility] Address [address] [place] [address] Care Team Providers Care Product Development Specialist Name Role Phone Kimberly Santillan MD Primary Care Provider [phone] Encounter Details Date Type Department Care Team (Late st Contact Info) Description 01/25/2023 Abstract [facility] Family Medicine [address] [place] [address] Kimberly Santillan MD [address] [place], [place] [phone] Social History Tobacco Use Types Packs/Day Years [...] on filedocumented in this encounter Care Teams Product Development Specialist Relationship Specialty Start Date End Date Kimberly Santillan MD [address] [place] [address] PCP - General Family Medicine 10/18/22 documented as of this encounter
--- OUTSIDE RECORDS SUMMARY | 2025-03-14 10:28 | XMS_ITS | Encounter Summary ---
Author Organization [facility] Address [address] [place] [address] Care Team Providers Care Political Research Scientist Name Role Phone Kimberly Santillan MD Primary Care Provider [phone] Encounter Details Date Type Department Care Team (Late st Contact Info) Description 03/14/2025 Patient Outreach [facility] [address] [place] [phone] Theresa Dawn, JESSIKA [address] [facility] 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
--- OUTSIDE RECORDS SUMMARY | 2025-03-14 10:28 | XMS_ITS | Encounter Summary ---
Author Organization [facility] Address [address] [place] [address] Care Team Providers Care Team Leader Surgery Name Role Phone Kimberly Santillan MD Primary Care Provider [phone] Encounter Details Date Type Department Care Team (Late st Contact Info) Description 03/01/2025 Patient Outreach [facility] [address] [place] [phone] Theresa Dawn, JESSIKA [address] [facility] [place] [address] Social History Tobacco Use Types Packs/Day Years [...] on file documented as of this encounter Progress Notes * Theresa Dawn RN - 03/01/2025 10:19 AM EDT Faxed most recent cmp to neph office. Faxed instructions to [facility] to increase semglee to 12 units. Requested bp and bs log be faxed to office in 2 weeks. Updated med list. Reviewed epic, no neph fu appt noted. March 01, 2025 10:38 AM Theresa Dawn RN called pt, left detailed message regarding new instructions, reminded to make sure she is drinking enough water, encouraged to get her fu scheduled with neph, and instructed to call with questions or concerns. * Theresa Dawn RN - 03/01/2025 10:19 AM EDT Received call from pt, states the [place] nurse did not receive new orders. Informed pt order was faxed to [place] this morning, also her lab result was faxed to dr noguera. Will refax to [place] again. Pt will let staff know. Discussed scheduling with neph, pt states she was told she had to wait till feb to call to schedule because they werent scheduling appt till may. She will call and get scheduled. Refaxed communication letter to [place]. 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
--- OUTSIDE RECORDS SUMMARY | 2025-03-14 10:28 | XMS_ITS | Encounter Summary ---
Author Organization [facility] Address [address] [place] [address] Care Team Providers Care Splash Line Operator Name Role Phone Kimberly Santillan MD Primary Care Provider [phone] Kimberly Santillan MD Unavailable [phone] Encounter Details Date Type Department Care Team (Late st Contact Info) Description 12/28/2022 [facility] [address] [place] [phone] Kimberly Santillan MD [address] [place], [place] [phone] Social History Tobacco Use Types Packs/Day Years [...] on filedocumented in this encounter Care Teams Splash Line Operator Relationship Specialty Start Date End Date Kimberly Santillan MD [address] [place] [address] PCP - General Family Medicine 10/18/22 Kimberly Santillan MD [address] [place] [address] PCP - ACO Reach 10/21/22 01/05/23 documented as of this encounter
--- OUTSIDE RECORDS SUMMARY | 2025-03-14 10:28 | XMS_ITS | Encounter Summary ---
Author Organization [facility] Address [address] [place] [address] Care Team Providers Care Turn Down Man Name Role Phone Kimberly Santillan MD Primary Care Provider [phone] Encounter Details Date Type Department Care Team (Late st Contact Info) Description 12/03/2024 Results Follow-Up [facility] Family Medicine [address] [place] [address] Kimberly Santillan MD [address] [place], [place] [phone] CBC, TSH W/REFLEX TO FT4, Lipid panel, Additional followed-up results: 3 Social History Tobacco Use Types Packs/Day Years [...] documented as of this encounter Care Teams Turn Down Man Relationship Specialty Start Date End Date Kimberly Santillan MD [address] [place] [address] PCP - General Family Medicine 10/18/22 documented as of this encounter
--- OUTSIDE RECORDS SUMMARY | 2025-03-14 10:28 | XMS_ITS | Encounter Summary ---
Author Organization [facility] Address [address] [facility] [place] [address] Care Team Providers Care Sales Marketing Director Name Role Phone Kimberly Santillan MD Primary Care Provider [phone] Encounter Details Date Type Department Care Team (Late st Contact Info) Description 03/18/2023 Abstract [facility] Family Medicine [address] [place] [address] Bertha Ayala NP [address] [place], [place] [phone] Social History Tobacco Use Types Packs/Day Years [...] on filedocumented in this encounter Care Teams Sales Marketing Director Relationship Specialty Start Date End Date Kimberly Santillan MD [address] [place] [address] PCP - General Family Medicine 10/18/22 documented as of this encounter
--- OUTSIDE RECORDS SUMMARY | 2025-03-14 10:28 | XMS_ITS ---
Author Organization [facility] Address [address] [place] [address] Care Team Providers Care Work From Home Name Role Phone Kimberly Santillan MD Primary Care Provider [phone] Chronic Care Management (CCM) Status:Enrolled (Active) Start date:05/30/2022 Enrollment date:05/30/2022 Overview 06/15/23, 1:12 PM - Theresa Dawn RN- Patient gives verbal consent to be enrolled in CCM Program and understands there could be a bill for this service. Case Team Name Relationship Phone Theresa Dawn RN(Responsible Staff) Care Manage r RN [phone] Continued Care and Services Coordination
--- OUTSIDE RECORDS SUMMARY | 2025-03-14 10:28 | XMS_ITS | Encounter Summary ---
Author Organization [facility] Address [address] [place] [address] Care Team Providers Care Social Science Professor Name Role Phone Kimberly Santillan MD Primary Care Provider [phone] Kimberly Santillan MD Unavailable Reason for Visit * Reason Comments Med Refill Encounter Details Date Type Department Care Team (Late st Contact Info) Description 12/29/2022 Refill [facility] Family Medicine [address] [place] [phone] Kimberly Santillan MD [address] [place] [address] Gastroesophageal reflux disease without esophagitis (Primary Dx) Social History Tobacco Use Types [...] Telephone Encounter - Kimberly Santillan MD - 12/29/2022 12:22 PM EDT Refills sent. documented in this encounter Plan of Treatment Not on file documented as of this encounter Visit Diagnoses Diagnosis Gastroesophageal reflux disease without esophagitis- Primary Esophageal reflux documented in this encounter Care Teams Social Science Professor Relationship Specialty Start Date End Date Kimberly Santillan MD [address] [facility] [place] [address] PCP - General Family Medicine 10/18/22 Kimberly Santillan MD [address] [place] [address] PCP - ACO Reach 10/21/22 01/05/23 documented as of this encounter
--- OUTSIDE RECORDS SUMMARY | 2025-03-14 10:28 | XMS_ITS | Encounter Summary ---
Author Organization [facility] Address [address] [place] [address] Care Team Providers Care Lighter Name Role Phone Kimberly Santillan MD Primary Care Provider [phone] Encounter Details Date Type Department Care Team (Late st Contact Info) Description 01/31/2025 Orders Only [facility] Family Medicine [address] [place] [address] Kimberly Santillan MD [address] [place], [place] [phone] Social History Tobacco Use Types Packs/Day Years [...] Time PHQ-9 Depression Total Score: 0 05/11/20 2:00 PM EST documented as of this encounter Care Teams Lighter Relationship Specialty Start Date End Date Kimberly Santillan MD [address] [place] [address] PCP - General Family Medicine 10/18/22 documented as of this encounter
--- OUTSIDE RECORDS SUMMARY | 2025-03-14 10:28 | XMS_ITS | Encounter Summary ---
Author Organization [employer] [facility] [employer] Address [id number] [address] [place] [address] Care Team Providers Care Senior Graphic Designer Name Role Phone Kimberly Santillan MD Primary Care Provider [phone] Encounter Details Date Type Department Care Team ([facility] Contact Info) Description 04/03/2020 Orders Only [facility] [address] [place] [phone] External, Scanning Provider Social History Tobacco Use [...] have Coronavirus / COVID-19? No / Unsure 04/01/2020 6:19 PM EST documented as of this encounter Plan of Treatment Upcoming Encounters Date Type Department Care Team ([facility] Contact Info) Description 06/13/2025 4:00 PM EST Office Visit [facility] [address] [place] [phone] Tre Jiang MD [address] [place], [place] [phone] documented as of this encounter Procedures Procedure Name Priority Date/Time Associated Diagnosis Comments MULTIPLE LABS Routine 03/28/2020 documented in this encounter Results * Multiple labs (03/28/2020) us Scanning Provider External IN IMAGING Final Result MANUALLY TRANSCRIBED RESULTS documented in this encounter Visit Diagnoses Not on filedocumented in this encounter Additional Health Concerns Infection Onset Date Last Indicated Resolved Time COVID-19 Rule-Out 01/03/2023 01/03/2023 01/03/2023 1:53 AM EDT COVID-19 Rule-Out 05/16/2023 05/16/2023 05/16/2023 8:52 AM EST documented as of this encounter Care Teams Senior Graphic Designer Relationship Specialty Start Date End Date Kimberly Santillan MD [address] [place] [address] PCP - General Family Medicine 10/04/18 documented as of this encounter
--- OUTSIDE RECORDS SUMMARY | 2025-03-14 10:29 | XMS_ITS | Encounter Summary ---
Author Organization [facility] Address [address] [place] [address] Care Team Providers Care Weld Fitter Name Role Phone Kimberly Santillan MD Primary Care Provider Reason for Visit * Reason Comments Med Refill Encounter Details Date Type Department Care Team (Late st Contact Info) Description 06/29/2024 Refill [facility] [address] [facility] [address] [place] [address] Mayelin Tyson, MASTER COOK [address] [facility] [address] [place] [address] Acute bronchitis, unspecified organism; Subacute cough Social History Tobacco Use Types Packs/Day Years [...] encounter Miscellaneous Notes * Telephone Encounter - Chika Holliday LPN - 07/02/2024 8:40 AM EST Not a patient in this office documented in this encounter Plan of Treatment Not on file documented as of this encounter Visit Diagnoses Diagnosis Acute bronchitis, unspecified organism Subacute cough documented in this encounter Additional Health Concerns Assessment Noted Time PHQ-9 Depression Total Score: 0 05/11/20 2:00 PM EST documented as of this encounter Care Teams Weld Fitter Relationship Specialty Start Date End Date Kimberly Santillan MD [address] [place] [address] PCP - General Family Medicine 10/18/22 documented as of this encounter
--- OUTSIDE RECORDS SUMMARY | 2025-03-14 10:29 | XMS_ITS | Encounter Summary ---
Author Organization [facility] Address [address] [place] [address] Care Team Providers Care Athletic Monitor Name Role Phone Kimberly Santillan MD Primary Care Provider [phone] Encounter Details Date Type Department Care Team (Late st Contact Info) Description 02/28/2024 Orders Only [facility] Family Medicine [address] [place] [address] Kimberly Santillan MD [address] [place], [place] [phone] Social History Tobacco Use Types Packs/Day Years [...] Date Recorded Patient Health Questionnaire-2 Score 0 01/19/2024 Comments Unknown Sex and Gender Information Value [...] SCREENING - OU - BOTH EYES Routine 02/27/2024 12:49 PM EDT documented in this encounter Results * Diabetic Retinopathy Screening - OU - Both Eyes (02/27/2024 12:49 PM EDT) Anatomical Region Laterality Modality Head Other us Kimberly Santillan MD OPHTH PHOTOGRAPHY Final Resul t documented in this encounter Visit Diagnoses Not on filedocumented in this encounter Additional Health Concerns Assessment Noted Time PHQ-9 Depression Total Score: 0 05/11/20 23 2:00 PM EST documented as of this encounter Care Teams Athletic Monitor Relationship Specialty Start Date End Date Kimberly Santillan MD [address] [place] [address] PCP - General Family Medicine 10/18/22 documented as of this encounter
--- OUTSIDE RECORDS SUMMARY | 2025-03-14 10:29 | XMS_ITS | Encounter Summary ---
Author Organization [facility] Address [address] [place] [address] Care Team Providers Care Controlled Atmospheric Furnace Brazer Name Role Phone Kimberly Santillan MD Primary Care Provider [phone] Encounter Details Date Type Department Care Team (Late st Contact Info) Description 04/06/2023 Abstract [facility] Family Medicine [address] [place] [address] Kimberly Santillan MD [address] [place], [place] [phone] Social History Tobacco Use Types Packs/Day Years [...] on filedocumented in this encounter Care Teams Controlled Atmospheric Furnace Brazer Relationship Specialty Start Date End Date Kimberly Santillan MD [address] [place] [address] PCP - General Family Medicine 10/18/22 documented as of this encounter
--- OUTSIDE RECORDS SUMMARY | 2025-03-14 10:29 | XMS_ITS | Encounter Summary ---
Author Organization [facility] Address [address] [place] [address] Care Team Providers Care Emergency Service Worker Name Role Phone Kimberly Santillan MD Primary Care Provider [phone] Encounter Details Date Type Department Care Team (Late st Contact Info) Description 05/19/2023 Orders Only [facility] Family Medicine [address] [place] [address] Winnie Flores SECURITY GUARDS DISPATCHER [address] [place], [place] [phone] Social History Tobacco Use Types Packs/Day Years [...] Date Recorded Patient Health Questionnaire-2 Score 0 05/11/2023 Comments Unknown Sex and Gender Information Value [...] SCREENING - OU - BOTH EYES Routine 02/17/2023 7:29 AM EDT documented in this encounter Results * Diabetic Retinopathy Screening - OU - Both Eyes (02/17/2023 7:29 AM EDT) Anatomical Region Laterality Modality Head Other Winnie Flores SECURITY GUARDS DISPATCHER OPHTH PHOTOGRAPHY Final Result documented in this encounter Visit Diagnoses Not on filedocumented in this encounter Additional Health Concerns Assessment Noted Time PHQ-9 Depression Total Score: 0 05/11/20 2:00 PM EST documented as of this encounter Care Teams Emergency Service Worker Relationship Specialty Start Date End Date Kimberly Santillan MD [address] [place] [address] PCP - General Family Medicine 10/18/22 documented as of this encounter
--- OUTSIDE RECORDS SUMMARY | 2025-03-14 10:29 | XMS_ITS | Encounter Summary ---
Author Organization [facility] Address [address] [place] [address] Care Team Providers Care Farmworker Field Crop Name Role Phone Kimberly Santillan MD Primary Care Provider Encounter Details Date Type Department Care Team (Late st Contact Info) Description 08/11/2023 Orders Only [facility] Family Medicine [address] [place] [address] Kimberly Santillan MD [address] [place], [place] [phone] Social History Tobacco Use Types Packs/Day Years [...] SCREENING - OU - BOTH EYES Routine 06/09/2023 4:42 PM EST documented in this encounter Results * Diabetic Retinopathy Screening - OU - Both Eyes (06/09/2023 4:42 PM EST) Anatomical Region Laterality Modality Head Other us Kimberly Santillan MD OPHTH PHOTOGRAPHY Final Resul t documented in this encounter Visit Diagnoses Not on filedocumented in this encounter Additional Health Concerns Assessment Noted Time PHQ-9 Depression Total Score: 0 05/11/20 23 2:00 PM EST documented as of this encounter Care Teams Farmworker Field Crop Relationship Specialty Start Date End Date Kimberly Santillan MD [address] [place] [address] PCP - General Family Medicine 10/18/22 documented as of this encounter
--- OUTSIDE RECORDS SUMMARY | 2025-03-14 10:29 | XMS_ITS | Encounter Summary ---
Author Organization [facility] Address [address] [facility] [place] [address] Care Team Providers Care Machine Shorthand Teacher Name Role Phone Kimberly Santillan MD Primary Care Provider [phone] Encounter Details Date Type Department Care Team (Late st Contact Info) Description 04/14/2023 Abstract [facility] Family Medicine [address] [place] [address] Kimberly Santillan MD [address] [place], [place] [id number] Social History Tobacco Use Types Packs/Day Years [...] on filedocumented in this encounter Care Teams Machine Shorthand Teacher Relationship Specialty Start Date End Date Kimberly Santillan MD [address] [place] [address] PCP - General Family Medicine 10/18/22 documented as of this encounter
--- OUTSIDE RECORDS SUMMARY | 2025-03-14 10:29 | XMS_ITS | Encounter Summary ---
Author Organization [facility] Address [address] [place] [address] Care Team Providers Care Belt Builder Name Role Phone Kimberly Santillan MD Primary Care Provider Encounter Details Date Type Department Care Team (Late st Contact Info) Description 05/08/2024 Orders Only [facility] Family Medicine [address] [place] [address] Kimberly Santillan MD [address] [place], [place] [id number] Social History Tobacco Use Types Packs/Day Years [...] documented as of this encounter Care Teams Belt Builder Relationship Specialty Start Date End Date Kimberly Santillan MD [address] [place] [address] PCP - General Family Medicine 10/18/22 documented as of this encounter
--- OUTSIDE RECORDS SUMMARY | 2025-03-14 10:29 | XMS_ITS | Encounter Summary ---
Author Organization [facility] Address [address] [place] [address] Care Team Providers Care Night Auditor Name Role Phone Kimberly Santillan MD Primary Care Provider [phone] Encounter Details Date Type Department Care Team (Late st Contact Info) Description 10/06/2023 Orders Only [facility] Family Medicine [address] [place] [address] Kimberly Santillan MD [address] [place], [place] [id number] Social History Tobacco Use Types Packs/Day Years [...] SCREENING - OU - BOTH EYES Routine 10/06/2023 11:09 AM EDT documented in this encounter Results * (ABNORMAL) Diabetic Retinopathy Screening - OU - Both Eyes (10/06/2023 11:09 AM EDT) Anatomical Region Laterality Modality Head Other us Kimberly Santillan MD OPHTH PHOTOGRAPHY Final Resul t documented in this encounter Visit Diagnoses Not on filedocumented in this encounter Additional Health Concerns Assessment Noted Time PHQ-9 Depression Total Score: 0 05/11/20 2:00 PM EST documented as of this encounter Care Teams Night Auditor Relationship Specialty Start Date End Date Kimberly Santillan MD [address] [place] [address] PCP - General Family Medicine 10/18/22 documented as of this encounter
--- OUTSIDE RECORDS SUMMARY | 2025-03-14 10:29 | XMS_ITS | Encounter Summary ---
Author Organization [facility] Address [address] [place] [address] Care Team Providers Care Factory Process Workers Name Role Phone Kimberly Santillan MD Primary Care Provider [phone] Reason for Visit * Reason Comments Med Refill Encounter Details Date Type Department Care Team (Late st Contact Info) Description 11/17/2023 Refill [facility] Family Medicine [address] [place] [address] Kimberly Santillan MD [address] [place], [place] [phone] Essential (primary) hypertension Social History Tobacco Use Types Packs/Day Years [...] Telephone Encounter - Kimberly Santillan MD - 11/18/2023 10:26 AM EDT Approving, but needs appt for additional refills. documented in this encounter Plan of Treatment Not on file documented as of this encounter Visit Diagnoses Diagnosis Essential (primary) hypertension Unspecified essential hypertension documented in this encounter Additional Health Concerns Assessment Noted Time PHQ-9 Depression Total Score: 0 05/11/20 2:00 PM EST documented as of this encounter Care Teams Factory Process Workers Relationship Specialty Start Date End Date Kimberly Santillan MD [address] [place] [address] PCP - General Family Medicine 10/18/22 documented as of this encounter
--- OUTSIDE RECORDS SUMMARY | 2025-03-14 10:29 | XMS_ITS | Encounter Summary ---
Author Organization [facility] Address [address] [place] [address] Care Team Providers Care Director Furniture Name Role Phone Kimberly Santillan MD Primary Care Provider [phone] Encounter Details Date Type Department Care Team (Late st Contact Info) Description 06/13/2024 Orders Only [facility] Family Medicine [address] [place] [address] Kimberly Santillan MD [address] [place], [place] [id number] Social History Tobacco Use Types Packs/Day Years [...] documented as of this encounter Care Teams Director Furniture Relationship Specialty Start Date End Date Kimberly Santillan MD [address] [place] [address] PCP - General Family Medicine 10/18/22 documented as of this encounter
--- OUTSIDE RECORDS SUMMARY | 2025-03-14 10:29 | XMS_ITS | Patient Health Record ---
Author Organization [facility] Address [address] [place], [place] [id number] Care Team Providers Care Water Resources Program Director Name Role Phone Sarah Christian Unavailable [phone] Allergies Allergen (clinical drug ingredient) Drug/Non Drug Allergy documented on EMR Reaction Allergy Type Onset Date Status nisoldipine Sular Unknown Drug Allergy Activ e Streptococcus pneumoniae serotype 1 capsular antigen diphtheria KCP877 protein conjugate vaccine / Streptococcus pneumoniae serotype 14 capsular antigen diphtheria DSE787 protein conjugate vaccine / Streptococcus pneumoniae serotype 18C capsular antigen diphtheria COW363 protein conjugate vaccine / Streptococcus pneumoniae serotype 19A capsular antigen diphtheria XQV550 protein conjugate vaccine / Streptococcus pneumoniae serotype 19F capsular antigen diphtheria GJK390 protein conjugate vaccine / Streptococcus pneumoniae serotype 23F capsular antigen diphtheria FRO864 protein conjugate vaccine / Streptococcus pneumoniae serotype 3 capsular antigen diphtheria MBQ564 protein conjugate vaccine / Streptococcus pneumoniae serotype 4 capsular antigen diphtheria LZA439 protein conjugate vaccine / Streptococcus pneumoniae serotype 5 capsular antigen diphtheria FYQ142 protein conjugate vaccine / Streptococcus pneumoniae serotype 6A capsular antigen diphtheria VCL613 protein conjugate vaccine / Streptococcus pneumoniae serotype 6B capsular antigen diphtheria [id number] protein conjugate vaccine / Streptococcus pneumoniae serotype 7F capsular antigen diphtheria HJY944 protein conjugate vaccine / Streptococcus pneumoniae serotype 9V capsular antigen diphtheria XPV203 protein conjugate vaccine Prevnar 13 Unknown Drug Allergy Active hydralazine Hydralazine Unknown Drug Allergy Act robe Latex Latex Unknown Allergy Active metformin Metformin Unknown Drug Allergy Active Penicillin Unknown Drug Allergy Active Reason For Referral No Information Social History Tobacco Use: Social History Observation Description Date Details (start date - stop date) Never Smoker NA - NA Sex Assigned At : Social History Observation Description Sex Assigned At Female Tobacco Control (Standard) Question Answer Notes Tobacco use: Nonsmoker Vital Signs Heart Rate 99 /min 07/26/2024 Blood pressure diastolic 86 mm Hg 07/26/2024 Height-cm 160.02 cm 07/26/2024 Weight-kg 67.13 kg 07/26/2024 Height 63 in 07/26/2024 Blood pressure systolic 170 mm Hg 07/26/2024 Weight 148 lbs 07/26/2024 BMI 26.21 kg/m2 07/26/2024 Encounters Encounter Location Date Provider Diagnosis [facility] [address] [place], [place] [id number] 07/26/2024 Sarah Christian Complete loss of t eeth, unspecified cause, class I K08.101 ; Encounter for screening for dental disorders Z13.84 and Encounter for dental examination and cleaning without abnormal findings Z01.20 Assessments Encounter Date Diagnosis (ICD Code) Assessment Notes Treatment Notes Treatment Clinical Notes Section Notes 07/26/2024 Complete loss of teeth, unspecified cause, class I (ICD-10 - K08.101) 07/26/2024 Encounter for screening for dental disorders (ICD-10 - Z13.84) 07/26/2024 Encounter for dental examination and cleaning without abnormal findings (ICD-10 - Z01.20) Plan Of Treatment No Information Insurance Providers Payer Name Payer Address Payer Phone Subscriber Number Group Number Insured Name Patient Relationship to Insured Coverage Start Date Coverage End Date [facility] [facility] [employer] [address] [place] [address] [id number] Mary Kam Self - patient is the insured 5 [employer] [address] [place] [address] [id number] Mary Kam Self - patient is the insured 5
--- OUTSIDE RECORDS SUMMARY | 2025-03-14 10:29 | XMS_ITS | Encounter Summary ---
Author Organization [facility] Address [address] [place] [address] Care Team Providers Care Transit Mixer Operator Name Role Phone Kimberly Santillan MD Primary Care Provider [phone] Encounter Details Date Type Department Care Team (Late st Contact Info) Description 03/07/2024 Abstract [facility] Family Medicine [address] [place] [address] Winnie Flores BULLET ASSEMBLY PRESS SETTER OPERATOR [address] [place], [place] [phone] Social History Tobacco Use Types Packs/Day Years [...] documented as of this encounter Care Teams Transit Mixer Operator Relationship Specialty Start Date End Date Kimberly Santillan MD [address] [place] [address] PCP - General Family Medicine 10/18/22 documented as of this encounter
--- NOTE | 2025-03-14 11:07 | PM.CN ---
Consult Note: HPI Data of Consult Patient: new to practice Consult date: 03/14/25 Requesting Physician: Pura White NP Primary Care Provider: ELADIO CANTU Consult Narrative Reason for consult: low back pain Narrative: Mary Fraire a pleasant 79 year old female with chronic moderate to severe back pain secondary to thoracic/lumbar scoliosis, ddd, facet arthropathy, and polio. Previous pt of Dr Turner who found benefit to lumbar RFAs but have since worn off. she has not recent imaging and PT. reports shes been advised not to do PT by her polio specialists. she cannot tolerate a HEP due to pain and mobility limitations. Pain today 2/10 in low back and posterior hips, increasing at times to 10/10. finds signifciant benefit to tylenol, however she only takes 650mg daily due to bladder incontinence. pt on plavix should not take NSAIDs, does utilize duloxtine 60mg daily as well. cc:: CC: Pura White NP Review of Systems ROS Musculoskeletal Reports: back pain; Denies: extremity pain Exam Constitutional Documenting provider has reviewed patient's vital signs: yes Common normals: no apparent distress, oriented x3, healthy appearing, alert and well nourished General appearance: cooperative HENMT Common normals: normocephalic, hearing grossly normal bilaterally and moist oral mucous membranes Head and scalp: normocephalic Eye Common normals: PERRL Pupil: PERRL Neck & C-Spine Common normals: full ROM General: normal visual inspection Chest Common normals: inspection of chest normal Respiratory Common normals: normal respiratory effort, no retractions and no use of accessory muscles Back & Pelvis Common normals: thoracic and/or lumbar spine abnormal Thoracic spine/upper back: ROM limited, pain with ROM, thoracic spinal tenderness and kyphosis present Lumbar spine/lower back: ROM limited, pain with ROM, lumbar spinal tenderness and straight leg raise negative bilaterally Sacroiliac joints: SI joint(s) abnormal (tenderness over bilateral PSIS) Other: thoracic/lumbar scoliosis noted Neuro Common normals: oriented x3 Sensorium/orientation: alert Psych Common normals: mental status grossly normal, thought process normal, cooperative, affect normal, speech normal and activity/motor behavior normal Speech: normal speech Thought process: normal thought process Results Additional Findings Additional findings: If on a controlled substance or opioids, I have checked an [place] report on this patient and there are no aberrancies noted in the prescribing history.??If on a controlled substance or opioid a drug screen was completed and reviewed within the last year, and if there has not been a drug screen completed we ordered one today to monitor higher risk, state monitored pain medication use. As part of providing excellent, safe, comprehensive care, the following was completed at our patient's visit: 1. A medication reconciliation and review to ensure accurate knowledge of current/active medications, including asking our patients to inform us about any [id number] medications or herbal remedies/nutritional supplements/alternative remedies. 2. A review to specifically ensure our patients have had annual screening for screening for depression, screening for tobacco use, and screening for unhealthy alcohol use. For concerning screenings had a discussion with the patient, provided patient education, and recommended follow-up with primary care provider when appropriate. If patient noted with a risk of falling, they received education on strength, gait, and balance training to prevent future risk of falling. Portions of this note may have been carried over from the previous visit and updated as appropriate. Please note this office utilizes paper charting in addition to the electronic medical record. A list of current medications, vitals, and PMH is available there as the clinical staff outside of myself do not have access to A [id number] charting during the clinic day operations. As part of providing quality comprehensive care the current medications, vitals, and PMH were reviewed in the paper chart. Assessment and Plan Assessment and Plan (1) Lumbar spondylosis: (2) Thoracic scoliosis: (3) Lumbar scoliosis: Plan Pt not interested in interventional therapy at this time, would like to trial tylenol further. update lumbar xray to assess lumbar spondylosis. Pt educated on tylenol use and liver metabolism, she was advised not to take more than 3000mg daily. f/u PRN per pt request.
== END 2025-03-14 10:24 | disposition home or self-care (01) ==
LOC: PM 10:23
PROVIDERS: PCP Family Medicine; Visit Provider Nurse Practitioner
DX: M47.816 Spondylosis without myelopathy or radiculopathy, lumbar region (principal); M41.84 Other forms of scoliosis, thoracic region; M41.86 Other forms of scoliosis, lumbar region
CPT/HCPCS: G0463